=== PATIENT | male | born 1965 | race Hispanic/Latino ===

== ENCOUNTER 2019-11-23 16:58 | Inpatient (IN) | payer BC, OTHER, SELFPAY ==
[2019-11-23] MEDS ORDERED: Dextrose 50% Abboject 50 ML SYRINGE ONE ×2 (17:26→19:16)
[2019-11-23] MEDS ORDERED: Diltiazem 125 MG/25 ML ONE (17:30)
[2019-11-23] MEDS ORDERED: Metoprolol Tartrate 5 MG/5 ML VIAL ONE (17:33)
[2019-11-23 17:53] LABS: #Lymphocytes 1.6 thou/uL (1.20-3.40); #Monocytes 0.7 thou/uL (0.11-0.59); #Neutrophils 7.3 thou/uL (1.40-6.50); %Basophils 0.3 % (0.0-1.0); %Eosinophils 0.2 % (0.0-10.0); %Lymphocytes 16.8 % (21.0-51.0); %Monocytes 7.3 % (0.0-10.0); %Neutrophils 75.4 % (42.0-75.0); Hemoglobin 12.4 g/dL (14.0-18.0); Mean Corpuscular Hemoglobin 32.6 pg (27.0-31.0); Mean Corpuscular Volume 95.8 fL (78.0-98.0); Mean Platelet Volume 10.2 fL (7.4-10.4); Platelet Count 194 thou/uL (130-400); RBC Distribution Width 15.4 % (11.5-14.5); White Blood Cell (WBC) Count 9.7 thou/uL (4.8-10.8)
[2019-11-23 18:22] LABS: ALT (SGPT) 44 U/L (8-55); AST (SGOT) 89 U/L (5-34); Alkaline Phosphatase 327 U/L (40-110); Anion Gap 15 mmol/L (10-20); BUN (Urea Nitrogen) 5 mg/dL (8.4-25.7); Bilirubin, Total 0.6 mg/dL (0.2-1.2); CK (CPK) 60 U/L (30-200); Calc. Creatinine Clearance 0 mL/min (70-130); Carbon Dioxide 18 mmol/L (22-29); Chloride 107 mmol/L (98-107); Estimated GFR-MDRD Greater than 90; Globulin 3.6 g/dL (2.4-3.5); Lipase 9 U/L (8-78); Magnesium 1.2 mg/dL (1.6-2.6); Protein, Total 6.6 g/dL (6.0-8.3); Sodium 138 mmol/L (136-145)
[2019-11-23 18:35] LABS: Glucose 29 mg/dL (70-105); Potassium 2.3 mmol/L (3.5-5.1)
--- NOTE | 2019-11-23 18:37 | RAD ---
XR Chest 1 View Portable HISTORY: Altered mental status COMPARISON: None FINDINGS: The heart size is normal. The lungs are well expanded without focal areas of consolidation, pneumothorax or pleural effusions. IMPRESSION: No radiographic evidence of acute cardiopulmonary process.
[2019-11-23 18:39] LABS: CKMB 2.8 ng/mL (0-6.6)
[2019-11-23] MEDS ORDERED: Potassium Chloride 20 MEQ TAB ONE (18:43)
[2019-11-23] MEDS ORDERED: NS 0.9% w/ 20 MEQ KCL 1,000 ML IV SCH (19:00)
[2019-11-23] MEDS ORDERED: D5 1/2 NS w/20 mEq KCL 1,000 ML IV SCH (19:15)
[2019-11-23] MEDS ORDERED: Lorazepam 2 MG/ML VIAL ONE (19:24)
[2019-11-23] MEDS ORDERED: Ondansetron PF 4 MG/2 ML Vial IVP PRN (20:33)
[2019-11-23] MEDS ORDERED: Electrolyte Replacement Protoc 1 EACH EACH IVPB PRN (20:33)
[2019-11-23] MEDS ORDERED: Lorazepam 2 MG/ML VIAL SLOW IVP PRN (20:39)
[2019-11-23] MEDS ORDERED: Potassium Chloride 40 MEQ in Premix Bag 1 BAG IVPB SCH (20:45)
[2019-11-23] MEDS ORDERED: D5 0.9% NS w/ 20 mEq KCl 1,000 ML IV SCH (20:45)
--- NOTE | 2019-11-23 20:46 | CT ---
CT BRAIN WITHOUT CONTRAST: HISTORY: Altered mental status FINDINGS: No evidence of acute infarct, hemorrhage, midline shift or abnormal extra-axial fluid collections is seen. The ventricular size is appropriate and the basilar cisterns are patent. The bony calvarium is intact. The mastoid air cells are well aerated. There is mucosal disease in the paranasal sinuses. IMPRESSION: No CT evidence of acute intracranial process.
--- NOTE | 2019-11-23 20:47 | PDOC.HHP ---
Hospitalist HPI - History of Present Illness Altered mental status History of Present Illness: 54-year-old gentleman with a history of insulin-dependent diabetes mellitus, hypertension was brought to the emergency department due to altered mental status. According to report patient was found down by family. EMS found him with heart rate in the 180s, and blood glucose of 20. He was given IV glucose and then transferred to the emergency department. Patient mental status had improved by the time he arrived to the ED. Patient had multiple episodes of hypoglycemia which was replaced with D50 and then started on D5 IV infusion. Current glucose level is 233. Patient was found to be in atrial fibrillation. He converted to sinus rhythm after a dose of IV metoprolol in the ED. Patient apparently had a generalized tonic-clonic seizures and was given Ativan. Abnormal labs in the ED included hypokalemia with a potassium of 2.3, and a bicarb of 18. His troponin was slightly elevated to 0.06. He was somnolent from the IV Ativan given for the seizures and could not provide any history. Patient niece endorsed patient drinks alcohol daily. Patient is admitted for further management. Hospitalist ROS - Review of Systems ROS unobtainable: due to mental status Hospitalist History - Past Medical History Cardiac: reports: HTN Endocrine: reports: Diabetes - Family History Family History: reports: diabetes mellitus (Sister) - Social History Smoking Status: Current every day smoker Alcohol: reports: Heavy Drugs: reports: none Living Situation: Roommate - Exam General Appearance: ill appearing General - other findings: Cachectic Eye: PERRL, anicteric sclera ENT: normocephalic atraumatic, no oropharyngeal lesions Neck: supple, symmetric, no JVD, no thyromegaly Heart: RRR, no murmur, no gallops Respiratory: CTAB, no wheezes, no rales, no ronchi Gastrointestinal: soft, non-tender, normal bowel sounds Extremities: no cyanosis, no clubbing, no edema Skin: normal turgor Neurological: no focal deficits Neurological - other findings: Somnolent, moves all extremities spontaneously. Musculoskeletal: normal tone, normal strength Psychiatric: somnolent Hospitalist Results - Labs Result Diagrams: 11/23/19 17:33 11/23/19 17:33 Lab results: WBC 9.7 thou/uL (4.8-10.8) 11/23/19 17:33 Hgb 12.4 g/dL (14.0-18.0) L 11/23/19 17:33 Hct 36.5 % (42.0-52.0) L 11/23/19 17:33 MCV 95.8 fL (78.0-98.0) 11/23/19 17:33 Plt Count 194 thou/uL (130-400) 11/23/19 17:33 Neutrophils % 75.4 % (42.0-75.0) H 11/23/19 17:33 Sodium 138 mmol/L (136-145) 11/23/19 17:33 Potassium 2.3 mmol/L (3.5-5.1) L* 11/23/19 17:33 Chloride 107 mmol/L (98-107) 11/23/19 17:33 Carbon Dioxide 18 mmol/L (22-29) L 11/23/19 17:33 BUN 5 mg/dL (8.4-25.7) L 11/23/19 17:33 Creatinine 0.52 mg/dL (0.7-1.3) L 11/23/19 17:33 Glucose 29 mg/dL (70-105) L* 11/23/19 17:33 Calcium 7.0 mg/dL (7.8-10.44) L 11/23/19 17:33 Total Bilirubin 0.6 mg/dL (0.2-1.2) 11/23/19 17:33 AST 89 U/L (5-34) H 11/23/19 17:33 ALT 44 U/L (8-55) 11/23/19 17:33 Alkaline Phosphatase 327 U/L (40-110) H 11/23/19 17:33 Creatine Kinase 60 U/L (30-200) 11/23/19 17:33 CK-MB (CK-2) 2.8 ng/mL (0-6.6) 11/23/19 17:33 Troponin I 0.060 ng/mL (< 0.028) H 11/23/19 17:33 B-Natriuretic Peptide 146.1 pg/mL (0-100) H 11/23/19 17:33 Serum Total Protein 6.6 g/dL (6.0-8.3) 10/01/20 17:33 Albumin 3.0 g/dL (3.5-5.0) L 11/23/19 17:33 Lipase 9 U/L (8-78) 11/23/19 17:33 - Radiology Interpretation CT scan - head Status: report reviewed by me (No acute intracranial process) Chest x-ray Status: report reviewed by me (No acute cardiopulmonary process.) Hospitalist H&P A/P - Problem (1) Hypoglycemia due to type 2 diabetes mellitus Code(s): E11.649 - TYPE 2 DIABETES MELLITUS WITH HYPOGLYCEMIA WITHOUT COMA Status: Acute Assessment and Plan: Secondary to Lantus insulin use. Hold long-acting insulin. Patient started on D5 infusion. Blood sugar has now stabilized Glucose monitoring every 2 hours. Reading moderate sliding scale. Hypoglycemia protocol (2) Chronic alcoholism Code(s): F10.20 - ALCOHOL DEPENDENCE, UNCOMPLICATED Status: Acute Assessment and Plan: Patient is endorsed daily alcohol intake. Initiate CIWA protocol. Give IV thiamine tonight. Replete electrolytes-potassium and magnesium. (3) Seizures Code(s): R56.9 - UNSPECIFIED CONVULSIONS Status: Acute Assessment and Plan: Likely related to alcohol. Seizures occurred when patient was hyperglycemic and not likely related to the hypoglycemia. Start IV Keppra. Ativan IV is available for breakthrough seizures. Neurology consult. Obtain EEG. (4) Hypokalemia Code(s): E87.6 - HYPOKALEMIA Status: Acute Assessment and Plan: Replete potassium IV Replete magnesium. Check phosphate level. Monitor electrolytes. (5) Atrial fibrillation Code(s): I48.91 - UNSPECIFIED ATRIAL FIBRILLATION Status: Acute Assessment and Plan: New onset. Likely provoked. Could be related to hypokalemia and hypomagnesemia. Optimize electrolytes, potassium level around 4 and magnesium around 2. Cardiology consult Obtain echocardiogram. (6) Elevated troponin Code(s): R77.8 - OTHER SPECIFIED ABNORMALITIES OF PLASMA PROTEINS Status: Acute Assessment and Plan: Likely secondary to demand ischemia from A. fib with RVR. Trend troponin. (7) Hypomagnesemia Code(s): E83.42 - HYPOMAGNESEMIA Status: Acute Assessment and Plan: Replete magnesium. Monitor electrolytes.
[2019-11-23] MEDS ORDERED: Potassium Chloride 40 MEQ in Sodium Chloride 0.9% 250 ML 250 ML IVPB SCH (21:00)
[2019-11-23] MEDS ORDERED: Famotidine/PF 20 mg/2ml Vial SLOW IVP SCH (21:00)
[2019-11-23] MEDS ORDERED: Magnesium 2 GM/50 ML 2 GM in Premix Bag 1 BAG IVPB SCH (21:15)
[2019-11-23 21:25] LABS: Phosphorus 3.3 mg/dL (2.3-4.7)
[2019-11-23 21:29] LABS: Lactic Acid 2.6 mmol/L (0.5-2.2)
[2019-11-23 21:33] LABS: Troponin I 0.105 ng/mL (< 0.028)
[2019-11-23 21:36] LABS: Glucose 66 mg/dL (70-105)
[2019-11-23] MEDS: Dextrose 50% Abboject 50 ML SYRINGE SLOW IVP PRN (22:20)
[2019-11-24 00:24] LABS: Troponin I 0.111 ng/mL (< 0.028)
[2019-11-24 01:29] LABS: Glucose 26 mg/dL (70-105)
[2019-11-24 03:08] LABS: Glucose 112 mg/dL (70-105)
[2019-11-24 03:16] LABS: Anion Gap 10 mmol/L (10-20); BUN (Urea Nitrogen) 4 mg/dL (8.4-25.7); Calc. Creatinine Clearance 111 mL/min (70-130); Calcium 6.8 mg/dL (7.8-10.44); Carbon Dioxide 21 mmol/L (22-29); Chloride 109 mmol/L (98-107); Estimated GFR-MDRD Greater than 90; Glucose 112 mg/dL (70-105); Potassium 3.6 mmol/L (3.5-5.1); Sodium 136 mmol/L (136-145)
[2019-11-24 03:34] LABS: Band 4 % (5-11); Hemoglobin 10.3 g/dL (14.0-18.0); Hypochromia SLIGHT = 6-15 cells (100X) (0-5/hpf); Lymphocytes 12 % (21-51); MDiff Complete? YES; Mean Corpuscular HGB CONC 35.3 g/dL (32.0-36.0); Mean Corpuscular Hemoglobin 33.6 pg (27.0-31.0); Mean Corpuscular Volume 95.4 fL (78.0-98.0); Mean Platelet Volume 9.8 fL (7.4-10.4); Monocytes 4 % (0-10); Neutrophil 80 % (42-75); Platelet Count 154 thou/uL (130-400); Platelet Morphology Comment Appears Adequate; RBC Distribution Width 15.3 % (11.5-14.5); Red Blood Cell (RBC) Count 3.06 mill/uL (4.70-6.10); White Blood Cell (WBC) Count 8.3 thou/uL (4.8-10.8)
[2019-11-24 04:23] LABS: Glucose 75 mg/dL (70-105)
[2019-11-24] MEDS: Dextrose 50% Abboject 50 ML SYRINGE SLOW IVP PRN (04:44)
[2019-11-24] MEDS ORDERED: Dextrose 10% in Water 1,000 ML IV SCH (04:45)
[2019-11-24 07:16] LABS: Glucose 191 mg/dL (70-105)
[2019-11-24 08:19] LABS: Glucose 209 mg/dL (70-105)
[2019-11-24] MEDS ORDERED: FLU VACC QS2020-21(6MOS UP)/PF 60 MCG/0.5 ML SYRINGE IM ONE (09:00)
--- NOTE | 2019-11-24 09:19 | MRI ---
MRI BRAIN WITH AND WITHOUT CONTRAST: DATE: 11/24/2019. HISTORY: A 54-year-old male with new-onset seizures. COMPARISON: none TECHNIQUE: Multiple sequences obtained in axial, sagittal, and coronal planes; pre and post IV injection of gado linium-based contrast agent: 10 mL MultiHance. Thin slice T1 MPR coronals, FLAIR, and gradient echo sequences (seizure protocol) were obtained in addition to the standard sequences. FINDINGS: The FLAIR, coronal, and T2 weighted axial images are severely degraded by motion artifact, such that it is difficult to make a statement about intraaxial signal abnormality. All of the rest of the sequ ences, including the postcontrast T1 weighted images, are of acceptable quality with minimal motion. The ventricles are normal in size and configuration. No abnormal intraaxial enhancement, mass, mass effect, midline shift, extraaxial fluid collection, remote intraaxial hemorrhage, or acute intraaxia l hemorrhage. No asymmetry between the left and right hippocampi. No restricted diffusion. IMPRESSION: 1. Some of the images are severely degraded by patient motion. Perhaps the patient was having a sei zure during those particular sequences. 2. No abnormality of the brain is identified, but it is difficult to make a statement on brain paren chymal signal abnormalities. ISH Kilgore POS: DOMINICK
[2019-11-24] MEDS: Thiamine HCl 200 MG/2 ML VIAL SLOW IVP SCH (10:27)
[2019-11-24] MEDS: Dextrose 5 % And 0.9 % NaCl 1,000 ML IV SCH ×2 (11:04→16:49)
[2019-11-24 11:31] LABS: SARS-CoV-2 MS2 Positive; SARS-CoV-2 N Gene Negative; SARS-CoV-2 S Gene Negative; SARS-CoV-2 by NAA Not Detected (NotDetected); SARS-CoV-2 orf1ab Negative
--- NOTE | 2019-11-24 12:18 | CON ---
NEUROLOGY CONSULTATION DATE OF CONSULTATION: 11/24/2019 REASON FOR CONSULTATION: Altered mental status/new onset seizure. HISTORY OF PRESENT ILLNESS: Mr. Mitchel Cavanaugh is a 54-year-old male with history significant for insulin-dependent diabetes mellitus, hypertension, presented to the emergency room because of altered mental status and seizure-like activity. The patient is extremely somnolent, unable to provide the history. The patient's history is taken from the niece. Per records, he was found down by the family. EMS found him with a heart rate in 180s and the blood glucose was 20. He was given IV glucose and transferred to the emergency department for further evaluation. His mental status improved when he arrived to the emergency room. On arrival, he had multiple episodes of hypoglycemia and was treated with D50 and then started on D5 intravenous infusion. The patient was also found to have new onset atrial fibrillation which was converted to cardiac rhythm after a dose of IV metoprolol in the emergency room. He apparently had a generalized tonic-clonic seizure and was given Ativan. He was also found to have hypokalemia and bicarb was 18. He does have history of alcohol abuse per niece and is admitted for further management. ROS: Constitutional: denies: chills, sweats Respiratory: denies: cough, shortness of breath Cardiovascular: denies: chest pain, palpitations, orthopnea Gastrointestinal: reports: nausea. denies: vomiting, abdominal pain Genitourinary: denies: dysuria PAST MEDICAL HISTORY: Hypertension, diabetes mellitus. PAST SURGICAL HISTORY: Not significant. FAMILY HISTORY: Family history is significant for diabetes mellitus. SOCIAL HISTORY: The patient has history of alcohol abuse and nicotine abuse. ALLERGIES: NKDA - Objective Vital Signs & Weight: Vital Signs (12 hours) Temp Pulse Ox 11/24/19 11:50 97.2 F L 11/24/19 11:06 100 11/24/19 07:24 97.7 F 11/24/19 03:53 98.1 F Weight Admit Weight 97 lb 8 oz Weight 97 lb Most Recent Monitor Data Heart Rate from ECG 73 NIBP 94/67 NIBP BP-Mean 76 Respiration from ECG 10 SpO2 100 I&O: 11/23/19 11/24/19 11/25/19 06:59 06:59 06:59 Intake Total 850 250 Output Total 500 Balance 850 -250 Additional Labs: Accuchecks 11/24/19 11/24/19 11/24/19 11:46 08:11 06:18 POC Glucose 181 H 202 H 216 H 11/24/19 11/24/19 11/23/19 04:19 02:01 19:30 POC Glucose 64 L 171 H 233 H 11/23/19 11/23/19 11/23/19 19:00 18:14 17:29 POC Glucose 31 L* 75 34 L* Active Medications Generic Name Dose Route Start Last Admin Trade Name Freq PRN Reason Stop Dose Admin Dextrose/Water 25 gm 11/23/19 20:42 11/24/19 04:44 Dextrose 50% Abboject 50 Ml Syringe SLOW IVP 25 gm PRN PRN Administration Hypoglycemia Dextrose/Sodium Chloride 1,000 mls @ 125 mls/hr 11/24/19 07:45 11/24/19 11:04 D5 0.9% Ns IV 1,000 mls .Q8H NURIA Administration Thiamine HCl 100 mg 11/24/19 08:00 11/24/19 10:27 Thiamine Hcl 200 Mg/2 Ml Vial SLOW IVP 100 mg Q24HR NURIA Administration PHYSICAL EXAMINATION: General Appearance: ill appearing General - other findings: Cachectic Eye: PERRL, anicteric sclera ENT: normocephalic atraumatic, no oropharyngeal lesions Neck: supple, symmetric, no JVD, no thyromegaly Heart: RRR, no murmur, no gallops Respiratory: CTAB, no wheezes, no rales, no ronchi Gastrointestinal: soft, non-tender, normal bowel sounds Extremities: no cyanosis, no clubbing, no edema Skin: normal turgor Neurological: Mental status, the patient is extremely somnolent, but opens eyes to verbal stimuli. He is alert and oriented to person, place, and time. Speech is clear. Cranial nerves 2 through 12 intact. Motor; muscle, tone and bulk are normal. Moving all 4 extremities equally and symmetrically. Sensory withdraws to nailbed pressure bilaterally. Cerebellar intact. Gait deferred due to patient's safety reason. DATA REVIEWED: Data reviewed, which was significant for anemia. Hemoglobin 12.4, hematocrit 36.5. Hypokalemia, potassium 2.3 and a glucose was 29 on initial presentation. Hypoglycemia. Head CT reviewed, which was negative for acute intracranial pathology. Chest x-ray did not reveal any acute cardiopulmonary process. Lab results: WBC 9.7 thou/uL (4.8-10.8) 11/23/19 17:33 Hgb 12.4 g/dL (14.0-18.0) L 11/23/19 17:33 Hct 36.5 % (42.0-52.0) L 11/23/19 17:33 MCV 95.8 fL (78.0-98.0) 11/23/19 17:33 Plt Count 194 thou/uL (130-400) 11/23/19 17:33 Neutrophils % 75.4 % (42.0-75.0) H 11/23/19 17:33 Sodium 138 mmol/L (136-145) 11/23/19 17:33 Potassium 2.3 mmol/L (3.5-5.1) L* 11/23/19 17:33 Chloride 107 mmol/L (98-107) 11/23/19 17:33 Carbon Dioxide 18 mmol/L (22-29) L 11/23/19 17:33 BUN 5 mg/dL (8.4-25.7) L 11/23/19 17:33 Creatinine 0.52 mg/dL (0.7-1.3) L 11/23/19 17:33 Glucose 29 mg/dL (70-105) L* 11/23/19 17:33 Calcium 7.0 mg/dL (7.8-10.44) L 11/23/19 17:33 Total Bilirubin 0.6 mg/dL (0.2-1.2) 11/23/19 17:33 AST 89 U/L (5-34) H 11/23/19 17:33 ALT 44 U/L (8-55) 11/23/19 17:33 Alkaline Phosphatase 327 U/L (40-110) H 11/23/19 17:33 Creatine Kinase 60 U/L (30-200) 11/23/19 17:33 CK-MB (CK-2) 2.8 ng/mL (0-6.6) 11/23/19 17:33 Troponin I 0.060 ng/mL (< 0.028) H 11/23/19 17:33 B-Natriuretic Peptide 146.1 pg/mL (0-100) H 11/23/19 17:33 Serum Total Protein 6.6 g/dL (6.0-8.3) 11/23/19 17:33 Albumin 3.0 g/dL (3.5-5.0) L 11/23/19 17:33 Lipase 9 U/L (8-78) 11/23/19 17:33 - Radiology Interpretation CT scan - head Status: report reviewed by me (No acute intracranial process) Chest x-ray Status: report reviewed by me (No acute cardiopulmonary process.) ASSESSMENT AND PLAN: (1) Hypoglycemia due to type 2 diabetes mellitus Code(s): E11.649 - TYPE 2 DIABETES MELLITUS WITH HYPOGLYCEMIA WITHOUT COMA Status: Acute (2) Chronic alcoholism Code(s): F10.20 - ALCOHOL DEPENDENCE, UNCOMPLICATED Status: Acute (3) Seizures Code(s): R56.9 - UNSPECIFIED CONVULSIONS Status: Acute (4) Hypokalemia Code(s): E87.6 - HYPOKALEMIA Status: Acute (5) Atrial fibrillation Code(s): I48.91 - UNSPECIFIED ATRIAL FIBRILLATION Status: Acute (6) Elevated troponin Code(s): R77.8 - OTHER SPECIFIED ABNORMALITIES OF PLASMA PROTEINS Status: Acute (7) Hypomagnesemia Code(s): E83.42 - HYPOMAGNESEMIA Status: Acute Mr. Mitchel Cavanaugh is a 54-year-old male with history significant for diabetes mellitus, chronic alcoholism, nicotine abuse, presented with new onset seizure in the setting of episodes of hypoglycemia and hypokalemia, most likely provoked seizure secondary to metabolic etiology versus alcohol abuse. EEG to rule out underlying cortical irritability. MRI of the brain reviewed, which did not reveal any acute intracranial pathology. However, poor quality study due to motion artifact. Consider repeat MRI if possible to evaluate for seizure focus. Continue neuro checks every 4 hours. Observe seizure precaution. Ativan 2 mg IV for seizure greater than 2 minutes. Telemetry since new-onset atrial fibrillation, most likely secondary to hypokalemia and hypomagnesemia. Consider 2D echocardiogram and Cardiology input. Correct metabolic abnormalities per primary team. CIWA protocol. Continue home medications. Continue medical management per primary team. No need to continue Keppra if MRI and EEG are negative. Further recommendation depends on the results of the testing. Plan discussed in detail with the patient and the niece. Thank you for the consult. Job ID: [id number] MTDD
--- NOTE | 2019-11-24 12:31 | PDOC.HOSPP ---
- Subjective Encounter Date: 11/24/19 Encounter Time: 08:00 Subjective: no overnight events. This morning, awake and alert. Complains of diffuse lower extremity pain. otherwise no complaints. - Objective Vital Signs & Weight: Vital Signs (12 hours) Temp Pulse Ox 11/24/19 11:50 97.2 F L 11/24/19 11:06 100 11/24/19 07:24 97.7 F 11/24/19 03:53 98.1 F Weight Admit Weight 97 lb 8 oz Weight 97 lb Most Recent Monitor Data Heart Rate from ECG 73 NIBP 94/67 NIBP BP-Mean 76 Respiration from ECG 10 SpO2 100 I&O: 11/23/19 11/24/19 11/25/19 06:59 06:59 06:59 Intake Total 850 250 Output Total 500 Balance 850 -250 Result Diagrams: 11/24/19 02:34 11/24/19 07:57 Additional Labs: Accuchecks 11/24/19 11/24/19 11/24/19 11:46 08:11 06:18 POC Glucose 181 H 202 H 216 H 11/24/19 11/24/19 11/23/19 04:19 02:01 19:30 POC Glucose 64 L 171 H 233 H 11/23/19 11/23/19 11/23/19 19:00 18:14 17:29 POC Glucose 31 L* 75 34 L* Hospitalist ROS - Review of Systems Constitutional: denies: chills, sweats Respiratory: denies: cough, shortness of breath Cardiovascular: denies: chest pain, palpitations, orthopnea Gastrointestinal: reports: nausea. denies: vomiting, abdominal pain Genitourinary: denies: dysuria - Medication Medications: Active Medications Generic Name Dose Route Start Last Admin Trade Name Freq PRN Reason Stop Dose Admin Dextrose/Water 25 gm 11/23/19 20:42 11/24/19 04:44 Dextrose 50% Abboject 50 Ml Syringe SLOW IVP 25 gm PRN PRN Administration Hypoglycemia Dextrose/Sodium Chloride 1,000 mls @ 125 mls/hr 11/24/19 07:45 11/24/19 11:04 D5 0.9% Ns IV 1,000 mls .Q8H NURIA Administration Thiamine HCl 100 mg 11/24/19 08:00 11/24/19 10:27 Thiamine Hcl 200 Mg/2 Ml Vial SLOW IVP 100 mg Q24HR NURIA Administration - Exam General Appearance: NAD, awake alert General - other findings: emaciated Eye: PERRL, anicteric sclera ENT: normocephalic atraumatic, moist mucosa Neck: no JVD Heart: RRR, no murmur, no gallops, no rubs Respiratory: CTAB, no wheezes, no rales, no ronchi Gastrointestinal: soft, non-tender, non-distended, normal bowel sounds Extremities: no edema Skin - other findings: multiple laceration and superficial ulcerations throughout upper and lower Neurological: no weakness, no focal deficits. negative: facial droop, hemiplegia, speech deficit Psychiatric: oriented to person, oriented to place, oriented to time Hosp A/P - Plan IDDM hypoglycemia alcohol abuse seizures Code(s): E11.649 - TYPE 2 DIABETES MELLITUS WITH HYPOGLYCEMIA WITHOUT COMA Status: Acute Assessment and Plan: hypoglycemia likley due to alcoholism, reduced PO intake without modifying insulin regimen accordingly seizures likley provoked by hypoglycemia; Neurology onboard; MRI pending lower extremity pain likely rhabdo due to seizures/alcoholism Paroxysmal a.fib spontaneously resolved; likely due to alcoholism; possibly hypomagnesemia considering likely precipitating factor is modifiable, continue to monitor Demand ischemia Code(s): R77.8 - OTHER SPECIFIED ABNORMALITIES OF PLASMA PROTEINS Status: Acute Assessment and Plan: stable likely demand due to seizure/afib Plan: stop keppra; ASE protocol continue D5-IVF, thiamine until blood glucose stable CK correct electrolytes Full code ELOS: 2 nights
[2019-11-24 13:00] LABS: ALT (SGPT) 34 U/L (8-55); AST (SGOT) 74 U/L (5-34); Albumin 2.5 g/dL (3.5-5.0); Alkaline Phosphatase 259 U/L (40-110); Anion Gap 13 mmol/L (10-20); BUN (Urea Nitrogen) Less than 4 mg/dL (8.4-25.7); Bilirubin, Total 0.6 mg/dL (0.2-1.2); Calc. Creatinine Clearance 102 mL/min (70-130); Calcium 6.7 mg/dL (7.8-10.44); Carbon Dioxide 18 mmol/L (22-29); Chloride 109 mmol/L (98-107); Estimated GFR-MDRD Greater than 90; Globulin 3.4 g/dL (2.4-3.5); Glucose 125 mg/dL (70-105); Potassium 4.4 mmol/L (3.5-5.1); Protein, Total 5.9 g/dL (6.0-8.3); Sodium 136 mmol/L (136-145)
[2019-11-24] MEDS ORDERED: Magnevist 469MG/ML 20 ML VIAL ONE (13:35)
--- NOTE | 2019-11-24 14:13 | CON ---
DATE OF CONSULTATION: 11/24/2019 REASON FOR CONSULTATION: New-onset atrial fibrillation. PRIMARY TENTS ASSEMBLER: None. Dr. Steven Leone MD consulted. HISTORY OF PRESENT ILLNESS: Mr. Cavanaugh is a 54-year-old male with a past medical history of insulin-dependent diabetes mellitus and hypertension that presented to the hospital after being found down by a friend at home. Per report, EMS found the patient to be hypoglycemic with a blood sugar in the 20s and he was found to be in atrial fibrillation with RVR. When the patient was evaluated in the ED, an EKG demonstrated atrial fibrillation with RVR with pulse in the 150s, and the patient was given 5 mg of metoprolol tartrate IV, which converted him to normal sinus rhythm. He also received D5 to help improve his blood glucose. Right before the patient was going to be admitted to the hospital, he had a generalized tonoclonic seizure, for which he was given Ativan. The patient was in normal sinus rhythm during that time with no arrhythmias appreciated on the territory service representative by the ER staff or ER physician Dr. Fishman. The patient was found to have a potassium of 2.3 and a magnesium of 1.2, which were repleted. He was admitted, and Cardiology was consulted for new-onset atrial fibrillation. Neurology has also been consulted for his generalized tonoclonic seizure-like activity. Today he endorses of leg pain and feeling tired, but otherwise denies other complaints. He does not recall what happened prior to being found down at home, and does not know what he is here. PAST MEDICAL HISTORY: 1. Insulin-dependent diabetes mellitus. 2. Hypertension. SURGICAL HISTORY: Negative. OUTPATIENT MEDICATIONS: 1. Glipizide 5 mg p.o. daily. 2. Insulin, though unknown type or dose. FAMILY HISTORY: No family history of any arrhythmias or cardiac abnormalities. ALLERGIES: NKDA SOCIAL HISTORY: smokes 1ppd; drinks approx "1/2 glass of tequila per day", last drink this past weekend; no drug use REVIEW OF SYSTEMS: A 12-point review of systems was done and was found to be negative other than stated in the history of present illness. PHYSICAL EXAMINATION: VITAL SIGNS: Temperature 97.2, pulse 73, respiratory rate 10, saturating 100% on room air, and blood pressure 94/67. GENERAL: Awake, alert, and oriented x3, though is unsure why he is in the hospital. No signs of distress. The patient is a poorly groomed and a feeble appearing male. HEENT: Normocephalic, atraumatic. NECK: Supple, full range of motion. LUNGS: Clear to auscultation bilaterally, no rhonchi or wheezes. CARDIOVASCULAR: Regular rate and rhythm, normal S1 and S2. No murmurs appreciated. ABDOMEN: Soft, positive bowel sounds. EXTREMITIES: No cyanosis, clubbing, or edema. Extremities appear very thin in nature. SKIN: Various lesions throughout the patient's arms, extremities, and back, though no discharge, bleeding, or erythema appreciated around the wounds. LABORATORY DATA: Laboratory work was reviewed. White count of 8.3, hemoglobin 10.3, hematocrit 29.2, and platelets 154. Chemistry; sodium 136, potassium 3.6, chloride 109, carbon dioxide 21, BUN 4, creatinine 0.47, GFR greater than 90, glucose 112, calcium 6.8. TSH 1.19. Troponins: highest of 0.111. BNP 146.1. COVID with PCR was not detected. IMAGING: Chest x-ray demonstrated no radiographic evidence of acute cardiopulmonary process. Brain CT demonstrated no CT evidence of acute intracranial process. Hospital MRI demonstrated no abnormalities of the brain, though difficult due to images being degraded by patient motion. ASSESSMENT AND PLAN: 1. Paroxysmal atrial fibrillation related to underlying pathology, likely electrolyte derangements. Echo has been ordered, will follow. Recommend starting the patient on a beta-ciara and continue to monitor cardiac rhythm. 2. Indeterminate troponins. Likely due to demand from afib with RVR upon presentation to the ED, troponins have trended down. 3. Hypertension, the patient's blood pressure has been within normal limits without hypertensive medications at this time, and it does not appear that the patient is on medications at home. 4. Insulin-dependent diabetes mellitus. Glucose monitoring and insulin per the primary team. 5. Hypokalemia and hypomagnesemia. Potassium appears to have been repleted as it is normal this morning at 3.6, repeat magnesium pending. Encourage continued repletion as necessary 6. Alcohol abuse. Per patient's niece last drink was last weekend. Patient is on ASE protocol 7. Generalized clonic-tonic seizure. Possibly due to hypoglycemia and electrolyte derangements. EEG pending. Neurology following. Dr. Leone evaluated the patient on the day of the consultation and agrees with the assessment and plan. Thank you for letting us participate in the care of your patient. We will continue to follow. Job ID: [id number] MTDD
--- NOTE | 2019-11-24 14:47 | EEG ---
DATE OF SERVICE: 11/24/2019 ATTENDING PHYSICIAN: Mari Del Valle MD This EEG was performed using 24-channel [employer] video digital EEG machine with 24-disk electrodes. This was an extended 2 hours 7 minutes of inpatient video EEG recording. Digital analysis of the EEG was done for spike and seizure detection, which revealed no abnormalities. BACKGROUND: The posterior background rhythm was not observed. Low amplitude EEG with excessive beta activity intermixed with the background. HYPERVENTILATION: Not performed. PHOTIC STIMULATION: No significant response seen with photic stimulation. SLEEP: Drowsiness and sleep are observed. EEG DIAGNOSES: 1. Intermittent irregular theta activity with superimposed beta. 2. Absence of posterior background rhythm. CLINICAL INTERPRETATION: This EEG is consistent with moderate generalized nonspecific cerebral dysfunction. Job ID: [id number]
--- NOTE | 2019-11-24 19:19 | CON ---
DATE OF CONSULTATION: Please refer to Oxana Castellanos for consultation for details. Briefly, Mr. Cavanaugh was found down. He was found to have a markedly decreased glucose level. He was seen and evaluated in the emergency room, where he had a brief episode of atrial fibrillation. He was given IV beta-ciara therapy and converted to sinus. He also had a seizure while in the emergency room. I have discussed the case with Dr. Stone Fishman. The patient was on the monitor and did not exhibit a dysrhythmia to cause his seizure-like activity. During my visit, Mr. Cavanaugh appears disheveled. He is thin and of low body weight. He is currently in sinus rhythm. From a CV standpoint, we would recommend continued observation. Recommend beta-ciara therapy. His brief episode of atrial fibrillation was likely related to his underlying condition. His overall LVEF does appear normal. At this point, I do not feel Mr. Cavanaugh is a good anticoagulation candidate based on his current social situation. We would have to show further episodes of atrial fibrillation and may consider an outpatient event recorder. Otherwise, from my standpoint, I have no further recommendations. Job ID: [id number]
[2019-11-24] MEDS ORDERED: Sodium Bicarbonate 150 MEQ in Dextrose 5% in Water 1,000 ML IV SCH (20:15)
[2019-11-24] MEDS ORDERED: Insulin Regular 300 UNITS/3 ML VIAL IVP SCH (22:15)
[2019-11-24] MEDS: Insulin Glargine 10 UNITS in Pre-Filled Syringe 1 EACH SC SCH (22:42)
[2019-11-25 03:35] LABS: ALT (SGPT) 27 U/L (8-55); AST (SGOT) 48 U/L (5-34); Albumin 2.2 g/dL (3.5-5.0); Alkaline Phosphatase 232 U/L (40-110); Anion Gap 9 mmol/L (10-20); BUN (Urea Nitrogen) Less than 4 mg/dL (8.4-25.7); Bilirubin, Total 0.6 mg/dL (0.2-1.2); Calc. Creatinine Clearance 96 mL/min (70-130); Calcium 6.7 mg/dL (7.8-10.44); Carbon Dioxide 24 mmol/L (22-29); Chloride 104 mmol/L (98-107); Estimated GFR-MDRD Greater than 90; Globulin 2.7 g/dL (2.4-3.5); Glucose 235 mg/dL (70-105); Magnesium 1.6 mg/dL (1.6-2.6); Potassium 3.5 mmol/L (3.5-5.1); Protein, Total 4.9 g/dL (6.0-8.3); Sodium 133 mmol/L (136-145)
[2019-11-25] MEDS ORDERED: Magnesium 2 GM/50 ML 2 GM in Premix Bag 1 BAG IVPB SCH (06:15)
[2019-11-25] MEDS: Potassium Chloride 20 MEQ in Premix Bag 1 BAG IVPB SCH ×2 (08:16→09:31)
--- NOTE | 2019-11-25 08:43 | PDOC.CPN ---
- Subjective Date: 11/25/19 Time: 08:33 Interval history: Pt doing much better He is more lucid today Maintaining SR - Objective Allergies/Adverse Reactions: Allergies Allergy/AdvReac Type Severity Reaction Status Date / Time No Known Drug Allergies Allergy Verified 11/23/19 23:54 Visit Medications: Current Medications Dextrose/Water (Dextrose 50% Abboject 50 Ml Syringe) 25 gm SLOW IVP PRN PRN PRN Reason: Hypoglycemia Last Admin: 11/24/19 04:44 Dose: 25 gm Documented by: Glucagon (Glucagon 1 Mg/Ml Vial) 1 mg IM PRN PRN PRN Reason: Hypoglycemia Sodium Bicarbonate 150 meq/ (Dextrose/Water) 1,150 mls @ 100 mls/hr IV INF [facility] Last Admin: 11/24/19 22:19 Dose: 1,150 mls Documented by: Insulin Glargine 10 units/ (Miscellaneous Medication) 0.1 mls @ 0 mls/hr SC HS [facility] Last Admin: 11/24/19 22:42 Dose: 0.1 mls Documented by: Magnesium Sulfate 2 gm/ Device 50 mls @ 100 mls/hr IVPB NOW [facility] Stop: 11/25/19 10:00 Last Admin: 11/25/19 07:48 Dose: 50 mls Documented by: Potassium Chloride 20 meq/ (Device) 100 mls @ 50 mls/hr IVPB Q2H [facility] Stop: 11/25/19 11:59 Last Admin: 11/25/19 08:16 Dose: 100 mls Documented by: Insulin Human Regular (Insulin Regular 300 Units/3 Ml Vial) 0 units SC .MOD ERATE SLIDING SC PRN PRN Reason: Moderate Correctional Scale Lorazepam (Lorazepam 2 Mg/Ml Vial) 2 mg SLOW IVP Q4H PRN PRN Reason: Anxiety/Agitation Miscellaneous Medication (Electrolyte Replacement Protoc 1 Each Each) 1 each IVPB PRN PRN PRN Reason: ELECTROLYTES Ondansetron HCl (Ondansetron Pf 4 Mg/2 Ml Vial) 4 mg IVP Q6H PRN PRN Reason: Nausea/Vomiting Sodium Chloride (Flush - Normal Saline 10 Ml Syringe) 10 ml IVF Q12HR [facility] Last Admin: 11/24/19 22:22 Dose: 10 ml Documented by: Sodium Chloride (Flush - Normal Saline 10 Ml Syringe) 10 ml IVF PRN PRN PRN Reason: Saline Flush Thiamine HCl (Thiamine Hcl 200 Mg/2 Ml Vial) 100 mg SLOW IVP Q24HR [facility] Last Admin: 11/24/19 10:27 Dose: 100 mg Documented by: Vital Signs & Weight: Vital Signs Temp 11/25/19 07:16 98.5 F 11/25/19 04:48 98.2 F 11/24/19 23:45 97.4 F L Admit Weight 97 lb 8 oz Weight 95 lb 14.4 oz - Physical Exam General: alert & oriented x3 Neck: supple neck Cardiac: regular rate and rhythm, no murmur, regular rate Lungs: normal exam Neuro: grossly intact Abdomen: no masses - Labs Result Diagrams: 11/24/19 02:34 11/25/19 02:55 Troponin/CKMB CK-MB (CK-2) 2.8 ng/mL (0-6.6) 11/23/19 17:33 Troponin I 0.111 ng/mL (< 0.028) H 11/23/19 23:44 - Assessment/Plan Assessment/Plan: Afib Severe hypoglycemia malnutrition Afib likely secondary to recent event/insult Given its transient nature, would recommend ASA and BB therapy EF normal on echo Seizure not secondary to dysrythmia No further recommendations
[2019-11-25] MEDS: Thiamine HCl 200 MG/2 ML VIAL SLOW IVP SCH (09:30)
--- NOTE | 2019-11-25 12:09 | PDOC.HOSPP ---
- Subjective Encounter Date: 11/25/19 Encounter Time: 09:25 Subjective: awake, responds well to verbal questions no sob or palp is having diarhea which is very watery, no blood or mucus in it - Objective Vital Signs & Weight: Vital Signs (12 hours) Temp Pulse Ox 11/25/19 11:26 98.2 F 11/25/19 08:00 98 11/25/19 07:16 98.5 F 11/25/19 04:48 98.2 F Weight Admit Weight 97 lb 8 oz Weight 95 lb 14.4 oz Most Recent Monitor Data Heart Rate from ECG 79 NIBP 130/78 NIBP BP-Mean 95 Respiration from ECG 11 SpO2 100 I&O: 11/24/19 11/25/19 11/26/19 06:59 06:59 06:59 Intake Total 850 3220 Output Total 1700 Balance 850 1520 Result Diagrams: 11/24/19 02:34 11/25/19 02:55 Additional Labs: Accuchecks 11/25/19 11/25/19 11/24/19 08:15 04:34 23:51 POC Glucose 138 H 138 H 375 H 11/24/19 11/24/19 11/24/19 22:31 20:14 16:11 POC Glucose 396 H 452 H 258 H Hospitalist ROS - Medication Medications: Active Medications Generic Name Dose Route Start Last Admin Trade Name Freq PRN Reason Stop Dose Admin Dextrose/Water 25 gm 11/23/19 20:42 11/24/19 04:44 Dextrose 50% Abboject 50 Ml Syringe SLOW IVP 25 gm PRN PRN Administration Hypoglycemia Sodium Bicarbonate 150 meq/ 1,150 mls @ 100 mls/hr 11/24/19 20:15 11/24/19 22:19 Dextrose/Water IV 1,150 mls INF [facility] Administration Insulin Glargine 10 units/ 0.1 mls @ 0 mls/hr 11/24/19 21:00 11/24/19 22:42 Miscellaneous Medication SC 0.1 mls HS [facility] Administration As Directed Sodium Chloride 10 ml 11/24/19 21:00 11/25/19 09:30 Flush - Normal Saline 10 Ml Syringe IVF 10 ml Q12HR [facility] Administration Thiamine HCl 100 mg 11/24/19 08:00 11/25/19 09:30 Thiamine Hcl 200 Mg/2 Ml Vial SLOW IVP 100 mg Q24HR [facility] Administration - Exam General Appearance: awake alert Eye: PERRL, anicteric sclera ENT: no oropharyngeal lesions, dry oral mucosa Neck: supple, no JVD Heart: RRR, no murmur Respiratory: no wheezes, no rales Gastrointestinal: soft, non-tender, non-distended, normal bowel sounds, no guarding, no rigidity Extremities: no cyanosis, no edema Neurological: cranial nerve grossly intact, no focal deficits Hosp A/P (1) Atrial fibrillation Code(s): I48.91 - UNSPECIFIED ATRIAL FIBRILLATION Status: Resolved Qualifiers: Atrial fibrillation type: paroxysmal Qualified Code(s): I48.0 - Paroxysmal atrial fibrillation (2) Hypoglycemia due to type 2 diabetes mellitus Code(s): E11.649 - TYPE 2 DIABETES MELLITUS WITH HYPOGLYCEMIA WITHOUT COMA Status: Acute (3) Severe protein-calorie malnutrition Code(s): E43 - UNSPECIFIED SEVERE PROTEIN-CALORIE MALNUTRITION Status: Chronic (4) FTT (failure to thrive) in adult Status: Chronic (5) DM type 2 (diabetes mellitus, type 2) Status: Chronic Qualifiers: Diabetes mellitus fci insulin use: without long goods drier use (6) Tobacco abuse Code(s): Z72.0 - TOBACCO USE Status: Chronic (7) Chronic alcoholism Code(s): F10.20 - ALCOHOL DEPENDENCE, UNCOMPLICATED Status: Chronic (8) Seizures Code(s): R56.9 - UNSPECIFIED CONVULSIONS Status: Suspected - Plan has multiple abrasion, lacerations over his body echo showed normal ef in sinus rhythm now tolerating oral diet continue lantus, iv fluids tx to med floor PT eval albumin levels are 2.2, appears cachectic HIV, ac hep panel hemostable now
--- NOTE | 2019-11-25 13:01 | PDOC.NEUPN ---
- Subjective Encounter Date: 11/25/19 Subjective: Patient feels better today. He is alert and oriented x 3. Niece acted as east timorese interpretor. - Objective Vital Signs & Weight: Vital Signs (12 hours) Temp BP Pulse Ox 11/25/19 11:26 98.2 F 11/25/19 11:11 131/85 11/25/19 08:00 98 11/25/19 07:16 98.5 F 11/25/19 04:48 98.2 F Weight Admit Weight 97 lb 8 oz Weight 95 lb 14.4 oz Most Recent Monitor Data Heart Rate from ECG 79 NIBP 130/78 NIBP BP-Mean 95 Respiration from ECG 11 SpO2 100 I&O: 11/24/19 11/25/19 11/26/19 06:59 06:59 06:59 Intake Total 850 3220 Output Total 1700 Balance 850 1520 Result Diagrams: 11/24/19 02:34 11/25/19 02:55 Additional Labs: Accuchecks 11/25/19 11/25/19 11/24/19 08:15 04:34 23:51 POC Glucose 138 H 138 H 375 H 11/24/19 11/24/19 11/24/19 22:31 20:14 16:11 POC Glucose 396 H 452 H 258 H Radiology Reviewed by me: Yes EKG Reviewed by me: Yes ROS - Review of Systems Constitutional: denies: fever, chills, sweats, weakness, malaise, other Eyes: denies: pain, vision change, conjunctivae inflammation, eyelid inflammation, redness, other ENT: denies: ear pain, ear discharge, nose pain, nose discharge, nose congestio n, mouth pain, mouth swelling, throat pain, throat swelling, other Respiratory: denies: cough, dry, shortness of breath, hemoptysis, SOB with excertion, pleuritic pain, sputum, wheezing, other Gastrointestinal: denies: nausea, vomiting, abdominal pain, diarrhea, constipation, melena, hematochezia, other Genitourinary: denies: dysuria, frequency, incontinence, hematuria, retention, other Musculoskeletal: denies: neck pain, shoulder pain, arm pain, back pain, hand pain, leg pain, foot pain, other Neurological: reports: weakness. denies: numbness, incoordination, change in speech, confusion, seizures, other - Medication Medications: Active Medications Generic Name Dose Route Start Last Admin Trade Name Rosalina PRN Reason Stop Dose Admin Dextrose/Water 25 gm 11/23/19 20:42 11/24/19 04:44 Dextrose 50% Abboject 50 Ml Syringe SLOW IVP 25 gm PRN PRN Administration Hypoglycemia Sodium Bicarbonate 150 meq/ 1,150 mls @ 100 mls/hr 11/24/19 20:15 11/24/19 22:19 Dextrose/Water IV 1,150 mls INF [facility] Administration Insulin Glargine 10 units/ 0.1 mls @ 0 mls/hr 11/24/19 21:00 11/24/19 22:42 Miscellaneous Medication SC 0.1 mls HS [facility] Administration As Directed Sodium Chloride 10 ml 11/24/19 21:00 11/25/19 09:30 Flush - Normal Saline 10 Ml Syringe IVF 10 ml Q12HR [facility] Administration Thiamine HCl 100 mg 11/24/19 08:00 11/25/19 09:30 Thiamine Hcl 200 Mg/2 Ml Vial SLOW IVP 100 mg Q24HR [facility] Administration - Exam General Appearance: awake alert Eye: PERRL ENT: normocephalic atraumatic Neck: supple Respiratory: CTAB Cardiovascular: RRR Gastrointestinal: soft Extremities: no cyanosis Skin: normal turgor Neurological: CN's grossly intact, normal sensation to touch, no weakness, no focal deficits Musculoskeletal: normal tone, normal strength, no muscle wasting PSYCH: normal affect, normal behavior, A&O x 3 Results - Labs Result Diagrams: 11/24/19 02:34 11/25/19 02:55 Lab results: WBC 8.3 thou/uL (4.8-10.8) 11/24/19 02:34 Hgb 10.3 g/dL (14.0-18.0) L 11/24/19 02:34 Hct 29.2 % (42.0-52.0) L 11/24/19 02:34 MCV 95.4 fL (78.0-98.0) 11/24/19 02:34 Plt Count 154 thou/uL (130-400) 11/24/19 02:34 Neutrophils % 75.4 % (42.0-75.0) H 11/23/19 17:33 Band Neuts % (Manual) 4 % (5-11) L 11/24/19 02:34 Sodium 133 mmol/L (136-145) L 11/25/19 02:55 Potassium 3.5 mmol/L (3.5-5.1) 11/25/19 02:55 Chloride 104 mmol/L (98-107) 11/25/19 02:55 Carbon Dioxide 24 mmol/L (22-29) 11/25/19 02:55 BUN Less than 4 mg/dL (8.4-25.7) L 11/25/19 02:55 Creatinine 0.54 mg/dL (0.7-1.3) L 11/25/19 02:55 Glucose 235 mg/dL (70-105) H 11/25/19 02:55 Lactic Acid 2.6 mmol/L (0.5-2.2) H 11/23/19 21:03 Calcium 6.7 mg/dL (7.8-10.44) L 11/25/19 02:55 Total Bilirubin 0.6 mg/dL (0.2-1.2) 11/25/19 02:55 AST 48 U/L (5-34) H 11/25/19 02:55 ALT 27 U/L (8-55) 11/25/19 02:55 Alkaline Phosphatase 232 U/L (40-110) H 11/25/19 02:55 Creatine Kinase 134 U/L (30-200) 11/24/19 07:57 CK-MB (CK-2) 2.8 ng/mL (0-6.6) 11/23/19 17:33 Troponin I 0.111 ng/mL (< 0.028) H 11/23/19 23:44 B-Natriuretic Peptide 146.1 pg/mL (0-100) H 11/23/19 17:33 Serum Total Protein 4.9 g/dL (6.0-8.3) L 11/25/19 02:55 Albumin 2.2 g/dL (3.5-5.0) L 11/25/19 02:55 Lipase 9 U/L (8-78) 11/23/19 17:33 - Radiology Interpretation MRI - head Status: image reviewed by me, report reviewed by me Additional Comment: No acute intracranial process PN A/P (1) Seizures Code(s): R56.9 - UNSPECIFIED CONVULSIONS Status: Suspected (2) Hypoglycemia due to type 2 diabetes mellitus Code(s): E11.649 - TYPE 2 DIABETES MELLITUS WITH HYPOGLYCEMIA WITHOUT COMA Status: Acute (3) Hypokalemia Code(s): E87.6 - HYPOKALEMIA Status: Acute (4) Hypomagnesemia Code(s): E83.42 - HYPOMAGNESEMIA Status: Acute (5) Chronic alcoholism Code(s): F10.20 - ALCOHOL DEPENDENCE, UNCOMPLICATED Status: Chronic (6) DM type 2 (diabetes mellitus, type 2) Status: Chronic Qualifiers: Diabetes mellitus terminal makeup operator insulin use: without snf use (7) FTT (failure to thrive) in adult Status: Chronic (8) Severe protein-calorie malnutrition Code(s): E43 - UNSPECIFIED SEVERE PROTEIN-CALORIE MALNUTRITION Status: Chronic (9) Tobacco abuse Code(s): Z72.0 - TOBACCO USE Status: Chronic (10) Atrial fibrillation Code(s): I48.91 - UNSPECIFIED ATRIAL FIBRILLATION Status: Resolved Qualifiers: Atrial fibrillation type: paroxysmal Qualified Code(s): I48.0 - Paroxysmal atrial fibrillation - Plan Daily Plan: PT/OT, speech therapy, DVT proph w/lovenox 54 year old male consulted for altered mental status and seizure like activity. Altered mental status seems multifactorial but most likely secondary to metabolic etiology. MRI Brain reviewed and was negative for acute intracranial process. EEG reviewed and was negative for seizure activity. No need for anticonvulsant since EEG and MRI Brain are negative. Continue home medications. Correct metabolic abnormalities. [facility] Protocol. Counseled on alcohol abuse. Continue medical management per primary team. PT/OT/Speech. Plan discussed with the patient , family member and the nursing staff.
[2019-11-25 13:25] LABS: HBCM Index 0.07 S/CO (0-0.79); HBSAg Index 0.22 S/CO (0-0.99); HIV (1/2) Antibody/Antigen Non-Reactive (NonReactive); HIV 1/2 INDEX 0.13 S/CO (<1.00); Hep A IgM AB Non-Reactive (NonReactive); Hep A IgM S/CO 0.32 S/CO (0-0.79); Hep B Surf Ag Non-Reactive S/CO (NonReactive); Hep C IgG Ab Non-Reactive (NonReactive); Hep C Index 0.07 S/CO (0-0.79); Hepatitis B Core IgM Abs Non-Reactive (NonReactive)
[2019-11-25] MEDS: Insulin Regular 300 UNITS/3 ML VIAL SC PRN (16:47)
[2019-11-25] MEDS: Insulin Glargine 10 UNITS in Pre-Filled Syringe 1 EACH SC SCH (20:47)
[2019-11-26] MEDS: HumaLOG 300 UNITS/3 ML VIAL SC PRN (00:41)
[2019-11-26] MEDS: Insulin Regular 300 UNITS/3 ML VIAL SC PRN ×3 (04:53→16:35)
[2019-11-26] MEDS: Thiamine HCl 200 MG/2 ML VIAL SLOW IVP SCH (08:57)
[2019-11-26] MEDS ORDERED: glipiZIDE 5 MG TAB PO SCH (11:47)
[2019-11-26] MEDS ORDERED: Insulin Glargine 10 UNITS in Pre-Filled Syringe 1 EACH SC SCH (11:47)
--- NOTE | 2019-11-26 11:51 | PDOC.HOSPP ---
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 admits to drinking tequila daily and 6 pack beer on weekends - Objective Vital Signs & Weight: Vital Signs (12 hours) Temp Pulse Resp BP BP Pulse Ox 11/26/19 11:42 98 F 94 20 110/74 100 11/26/19 08:37 98.3 F 89 16 100/67 100 11/26/19 05:07 99 11/26/19 04:39 99.5 F 89 16 100/61 Weight Admit Weight 97 lb 8 oz Weight 95 lb Most Recent Monitor Data Heart Rate from ECG 79 NIBP 130/78 NIBP BP-Mean 95 Respiration from ECG 11 SpO2 100 I&O: 11/25/19 11/26/19 11/27/19 06:59 06:59 06:59 Intake Total 3220 800 Output Total 1700 1000 Balance 1520 -200 Result Diagrams: 11/24/19 02:34 11/25/19 02:55 Additional Labs: Accuchecks 11/26/19 11/26/19 11/25/19 04:36 00:15 20:52 POC Glucose 416 H 459 H 206 H 11/25/19 15:50 POC Glucose 266 H Hospitalist ROS - Medication Medications: Active Medications Generic Name Dose Route Start Last Admin Trade Name Freq PRN Reason Stop Dose Admin Dextrose/Water 25 gm 11/23/19 20:42 11/24/19 04:44 Dextrose 50% Abboject 50 Ml Syringe SLOW IVP 25 gm PRN PRN Administration Hypoglycemia Sodium Bicarbonate 150 meq/ 1,150 mls @ 100 mls/hr 11/24/19 20:15 11/24/19 22:19 Dextrose/Water IV 1,150 mls INF [facility] Administration Insulin Glargine 10 units/ 0.1 mls @ 0 mls/hr 11/24/19 21:00 11/25/19 20:47 Miscellaneous Medication SC 0.1 mls HS [facility] Administration As Directed Insulin Human Lispro 0 units 11/26/19 00:21 11/26/19 00:41 Humalog 300 Units/3 Ml Vial SC 5 unit .BEDTIME SLIDING SC PRN Administration Bedtime Correctional Scale Insulin Human Regular 0 units 11/23/19 20:33 11/26/19 04:53 Insulin Regular 300 Units/3 Ml Vial SC 10 unit .MODERATE SLIDING SC PRN Administration Moderate Correctional Scale Sodium Chloride 10 ml 11/24/19 21:00 11/26/19 08:58 Flush - Normal Saline 10 Ml Syringe IVF 10 ml Q12HR [facility] Administration Thiamine HCl 100 mg 11/24/19 08:00 11/26/19 08:57 Thiamine Hcl 200 Mg/2 Ml Vial SLOW IVP 100 mg Q24HR [facility] Administration - Exam General Appearance: awake alert Eye: PERRL, anicteric sclera ENT: no oropharyngeal lesions, moist mucosa Neck: supple, no JVD Heart: RRR, no murmur Respiratory: no wheezes, no rales Gastrointestinal: soft, non-tender, non-distended, normal bowel sounds Extremities: no cyanosis, no edema Neurological: cranial nerve grossly intact, no focal deficits Hosp A/P (1) Atrial fibrillation Code(s): I48.91 - UNSPECIFIED ATRIAL FIBRILLATION Status: Resolved Qualifiers: Atrial fibrillation type: paroxysmal Qualified Code(s): I48.0 - Paroxysmal atrial fibrillation (2) Hypoglycemia due to type 2 diabetes mellitus Code(s): E11.649 - TYPE 2 DIABETES MELLITUS WITH HYPOGLYCEMIA WITHOUT COMA Status: Resolved (3) Severe protein-calorie malnutrition Code(s): E43 - UNSPECIFIED SEVERE PROTEIN-CALORIE MALNUTRITION Status: Chronic (4) FTT (failure to thrive) in adult Status: Chronic (5) DM type 2 (diabetes mellitus, type 2) Status: Chronic Qualifiers: Diabetes mellitus nursing home insulin use: without nursing home use (6) Tobacco abuse Code(s): Z72.0 - TOBACCO USE Status: Chronic (7) Chronic alcoholism Code(s): F10.20 - ALCOHOL DEPENDENCE, UNCOMPLICATED Status: Chronic (8) Seizures Code(s): R56.9 - UNSPECIFIED CONVULSIONS Status: Suspected - Plan has multiple abrasion, lacerations over his body echo showed normal ef in sinus rhythm now tolerating oral diet continue lantus, add glipizide HIV, ac hep panel are -ve albumin levels are 2.2, appears cachectic CT chest, abd and pelvis to r/o malignancy? hemostable now
[2019-11-26] MEDS ORDERED: Iopamidol-370 76% 500 ML 1 ML ONE (14:01)
--- NOTE | 2019-11-26 17:20 | CT ---
CT OF CHEST, ABDOMEN, AND PELVIS PERFORMED WITH INTRAVENOUS CONTRAST ENHANCEMENT: History: Patient drinks alcohol regularly. Came in from a coma from hypoglycemia. History of diabetes . Recent diarrhea. FINDINGS: The lungs are clear of any infiltrative process. There is some linear atelectasis seen in the right b ase. No pulmonary nodules are identified or pleural effusions. There are small subcentimeter mediastinal lymph nodes, none of which appear significantly enlarged. N o significant hilar adenopathy. There is some mildly prominent nonspecific bilateral axillary lymph n odes. CT OF ABDOMEN PERFORMED WITH INTRAVENOUS CONTRAST ENHANCEMENT: Liver shows no focal lesions. The spleen and pancreas regions are unremarkable. The gallbladder is co ntracted at the time of this exam. Moderate amount of gastric distention is incidentally noted. The p atient appears to have probably recently eaten. Clinical correlation for any symptoms of gastroparesi s. Right and left adrenal glands and right and left kidneys are normal in size. There is no significant periaortic or mesenteric lymphadenopathy. Moderate amount of stool is seen in the right colon. CT OF PELVIS PERFORMED WITH CONTRAST ENHANCEMENT: Bladder wall thickening is probably on the basis of some element of outlet obstruction. The prostate does not appear significantly enlarged. Cystitis would be another consideration. No pelvic lymphadeno kee or mass. The appendix region is unremarkable. Review of osseous structures show no concerning lytic or blastic bony change. Arthritic changes of th e spine are noted with bilateral pars defects and a Grade I spondylolisthesis of L5 on S1. IMPRESSION: 1. No acute findings of the chest, abdomen, or pelvis. Nonspecific mild axillary adenopathy is s een. No evidence of malignancy. 2. Mild bladder wall thickening. POS: OFF
[2019-11-26] MEDS: Insulin Glargine 10 UNITS in Pre-Filled Syringe 1 EACH SC SCH (21:23)
[2019-11-27] MEDS: HumaLOG 300 UNITS/3 ML VIAL SC PRN (00:38)
[2019-11-27 05:30] VITALS: BMI 15.1
[2019-11-27 08:12] VITALS: BP 105/71; TEMP 97.7
[2019-11-27] MEDS ORDERED: glipiZIDE 5 MG TAB PO SCH (09:00)
[2019-11-27] MEDS: Thiamine HCl 200 MG/2 ML VIAL SLOW IVP SCH (09:24)
[2019-11-27] MEDS: Insulin Regular 300 UNITS/3 ML VIAL SC PRN (11:55)
--- NOTE | 2019-11-27 14:56 | DIS ---
DATE OF ADMISSION: 11/23/2019 DATE OF DISCHARGE: 11/27/2019 DISCHARGE DISPOSITION: Home. PRIMARY DISCHARGE DIAGNOSIS: Acute metabolic encephalopathy secondary to hypoglycemia, resolved. SECONDARY DISCHARGE DIAGNOSES: Diabetes mellitus type 2, hypertension, severe protein calorie malnutrition, multiple wounds which are chronically present, failure to thrive, tobacco abuse, suspected chronic alcohol abuse, initial suspicion for seizure has been ruled out. PROCEDURES DONE DURING HOSPITALIZATION: Chest x-ray done showed no acute cardiopulmonary process. CT brain done showed no acute intracranial process. MRI brain on 11/24/2019 with and without contrast done showed no abnormality seen, but this was technically difficult exam due to images being degraded due to patient motion. Echo with 2D Doppler showed EF of 55% to 60%. CT chest, abdomen, and pelvis with and without contrast done showed no acute findings, nonspecific mild axillary adenopathy, mild urinary bladder wall thickening. EEG done on 11/24/2019 showed findings consistent with moderate generalized nonspecific cerebral dysfunction. Stool for Campylobacter antigen, Shiga toxin 1 and 2 were negative. H and H 10 and 29, platelet count 154. MCV 95, albumin 2.2. On arrival, serum glucose was 29, potassium was 2.3, serum bicarb 18, magnesium 1.2, calcium 7.0. COVID-19 PCR was not detected on 11/23/2019. HIV 1 and 2 antigen nonreactive. Acute hepatitis panel negative. DISCHARGE MEDICATIONS: Glipizide 5 mg p.o. daily. ALLERGIES: NO KNOWN DRUG ALLERGIES. BRIEF COURSE DURING HOSPITALIZATION: The patient initially got admitted to [facility] for altered mental state due to persistent hypoglycemia. The patient has known history of type 2 diabetes. There is also initial suspicion for tonic colonic seizure, likely due to hypoglycemia, which got resolved in the ER. He had acute metabolic encephalopathy secondary to above. He was also very poor historian, likely due to underlying chronic alcohol abuse issues. He also had multiple wounds all over his body including abrasions and lacerations likely from falling versus chronic skin disease which is undiagnosed. His hypoglycemia completely got resolved. The patient's metabolic encephalopathy resolved. His diabetes mellitus type 2 is stable at the time of discharge. He is ambulating and tolerating oral solid diet. In view of the patient's BMI of around 15 and weighing around 94 pounds with him being 5 foot 6 [address] He has had CT chest, abdomen, and pelvis with and without contrast and MRI brain with and without contrast done, none of the above imaging study showed any acute abnormality to explain his cachexia. His echo revealed normal ejection fraction as well. The patient was counseled with regard to complete cessation of tobacco and alcohol. He was counseled with regard to healthy eating. He is hemodynamically stable and will be shortly discharged home. Please note, I have seen and examined the patient on the day of discharge. Job ID: [id number]
== END 2019-11-27 12:01 | disposition home or self-care (01) | DRG 637 ==
LOC: ERS 16:58 → IMCU/EMU 19:47 → T4-B 11-25 12:06
PROVIDERS: ADMIT Internal Medicine; ATTEND Internal Medicine
DX: E11.649 Type 2 diabetes mellitus with hypoglycemia without coma (principal); E43 Unspecified severe protein-calorie malnutrition; G93.41 Metabolic encephalopathy; R64 Cachexia; Z68.1 Body mass index [BMI] 19.9 or less, adult; I24.8 Other forms of acute ischemic heart disease; I48.0 Paroxysmal atrial fibrillation; E87.6 Hypokalemia; L89.152 Pressure ulcer of sacral region, stage 2; I10 Essential (primary) hypertension; R62.7 Adult failure to thrive; F17.200 Nicotine dependence, unspecified, uncomplicated; F10.20 Alcohol dependence, uncomplicated; R77.8 Other specified abnormalities of plasma proteins; E83.42 Hypomagnesemia; Z79.899 Other long term (current) drug therapy; Z20.828 Contact with and (suspected) exposure to other viral communicable diseases
CPT/HCPCS: 36415; 36416; 36600; 70450; 70553; 71045; 71260; 74177; 80053; 80074; 82550; 82553; 82947; 83605; 83690; 83735; 83880; 84100; 84443; 84484; 85007; 85025; 85027; 87045; 87046; 87389; 87427; 87449; 87635; 90471; 90662; 90732; 93005; 93306; 95712; 95816; 95819; 96365; 96375; A9579; G0008; G0009; J1815; J1953; J2060; J3411; J3475; J3480; J7050; J7070; Q9967; S0028; U0003

== ENCOUNTER 2020-01-30 04:53 | Inpatient (IN) | payer SELFPAY ==
[2020-01-30] MEDS ORDERED: Succinylcholine 200 MG/10 ml SYRINGE FS ONE (05:23)
[2020-01-30] MEDS ORDERED: Norepinephrine 8 MG/0.9% NS 250 ML ONE (05:27)
[2020-01-30 06:00] LABS: #Monocytes 0.6 thou/uL (0.11-0.59); #Neutrophils 9.2 thou/uL (1.40-6.50); %Basophils 0.3 % (0.0-1.0); %Eosinophils 0.1 % (0.0-10.0); %Lymphocytes 16.9 % (21.0-51.0); %Monocytes 5.2 % (0.0-10.0); %Neutrophils 77.5 % (42.0-75.0); Hemoglobin 13.4 g/dL (14.0-18.0); Mean Corpuscular HGB CONC 33.4 g/dL (32.0-36.0); Mean Corpuscular Hemoglobin 32.5 pg (27.0-31.0); Mean Corpuscular Volume 97.2 fL (78.0-98.0); Mean Platelet Volume 8.8 fL (7.4-10.4); Platelet Count 260 thou/uL (130-400); Red Blood Cell (RBC) Count 4.11 mill/uL (4.70-6.10); White Blood Cell (WBC) Count 11.8 thou/uL (4.8-10.8)
[2020-01-30] MEDS ORDERED: Cefepime 2 GM VIAL ONE (06:09)
[2020-01-30] MEDS ORDERED: Vancomycin 1 GM/200 ML BAG ONE (06:09)
[2020-01-30 06:11] LABS: ALT (SGPT) 23 U/L (8-55); AST (SGOT) 25 U/L (5-34); Alkaline Phosphatase 194 U/L (40-110); Anion Gap 16 mmol/L (10-20); BUN (Urea Nitrogen) 6 mg/dL (8.4-25.7); Bilirubin, Total 0.3 mg/dL (0.2-1.2); Calc. Creatinine Clearance 0 mL/min (70-130); Calcium 7.9 mg/dL (7.8-10.44); Carbon Dioxide 22 mmol/L (22-29); Chloride 102 mmol/L (98-107); Globulin 4.1 g/dL (2.4-3.5); Glucose 153 mg/dL (70-105); Potassium 3.6 mmol/L (3.5-5.1); Protein, Total 7.1 g/dL (6.0-8.3); Sodium 136 mmol/L (136-145)
[2020-01-30 06:13] LABS: Acetaminophen Less than 6.0 mcg/mL (10.0-30.0); Alcohol Less than 10 mg/dL (Less than 10); Salicylate Less than 8.0 mg/dL (15.0-30.0)
[2020-01-30] MEDS ORDERED: fentaNYL Citrate/PF 2,000 MCG in Sodium Chloride 0.9% 60 ML IV SCH (06:15)
[2020-01-30 06:50] LABS: Analyzer IN Cardio ER; Base Excess (BEa) -5.6 mEq/L (-2.0 to +3.0); CO2 Tension 51.9 mmHg (35.0-45.0); Calcium, Ionized (arterial) 1.09 mmol/L (1.12-1.30); Carboxyhemoglobin (COHb) 0.2 gm% (0.0-3.0); Hemoglobin (Hb) 13.8 g/dL (14.0-18.0); Potassium - ABG Lab 3.17 mmol/L (3.70-5.30)
[2020-01-30 06:58] LABS: O2 Tension (PaO2), arterial 57.4 mmHg (80.0-100.0); Puncture Site LRA; pH, Arterial 7.25 (7.35-7.45)
[2020-01-30 06:59] LABS: ALV-art Gradient 448.125 mmHg (0-20)
[2020-01-30 07:05] LABS: SARS-CoV-2 NAA Rapid Test Not Detected (NotDetected)
--- NOTE | 2020-01-30 07:30 | CT ---
PRELIMINARY REPORT/[facility]/EMERGENCY AFTER HOURS PROCEDURE: This report was discussed with ABRAM HORNER MD by Breanna hairston on Jan 30, 2020 05:21:00 SHOVEL OPERATOR. Addendum electronically signed by Breanna hairston on January 30, 2020 5:21:41 AM SHOVEL OPERATOR EXAM: CT Head Without Intravenous Contrast. CLINICAL HISTORY: AMS TECHNIQUE: Axial computed tomography images of the head/brain without intravenous contrast. COMPARISON: 11/23/2019. FINDINGS: BRAIN: No acute intraparenchymal hemorrhage. No mass lesion. No CT evidence for acute territorial inf arct. No midline shift or extra-axial collection. VENTRICLES: No hydrocephalus. ORBITS: The orbits are unremarkable. SINUSES AND MASTOIDS: The paranasal sinuses and mastoid air cells are clear. SOFT TISSUES: No significant facial or scalp soft tissue swelling evident. No radiopaque foreign body is seen. BONES: No acute skull fracture. IMPRESSION: No acute intracranial abnormality. ELECTRONICALLY SIGNED BY: Anamika Oliveira DO Jan 30, 2020 5:18:30 AM SHOVEL OPERATOR FINAL REPORT HEAD CT WITHOUT CONTRAST: HISTORY: Altered mental status. Level II stroke. COMPARISON: 11/23/2019. FINDINGS: Hemorrhage: No intraparenchymal hemorrhage or extra-axial hematoma. Brain parenchyma: Cortical hernadez-white matter differentiation is preserved. No mass effect or midline shift. Basilar cisterns are patent. Ventricular system: Ventricles and sulci are patent and symmetric. Calvarium: Intact. Sinuses and mastoid air cells: Adequate aeration. IMPRESSION: 1. This report is in agreement with initial report by [facility] 2. No acute intracranial process. Transcribed Date/Time: 01/30/2020 8:18 AM
[2020-01-30] MEDS ORDERED: Ondansetron PF 4 MG/2 ML Vial IVP PRN (07:31)
[2020-01-30] MEDS ORDERED: Electrolyte Replacement Protocol 1 EACH IVPB SCH (07:31)
[2020-01-30] MEDS ORDERED: Acetaminophen 325 MG Suppository PR PRN (07:31)
--- NOTE | 2020-01-30 07:39 | RAD ---
Portable frontal chest radiograph: 01/30/2020 COMPARISON: 01/30/2020 HISTORY: Evaluate lines and tubes, hypoglycemia FINDINGS: There is a new endotracheal tube in proper position. There are focal areas of airspace dise ase in the lung bases, right greater than left, grossly unchanged. There is a nasogastric tube which is malpositioned, curling over the mid chest, distal tip directed cephalad. Supine imaging limi ts assessment for pneumothorax and pleural fluid. IMPRESSION: Bibasilar airspace disease/consolidation suggesting infectious pneumonitis or aspiration. New endotracheal tube in proper position Malpositioned nasogastric tube. Recommend removal of the nasogastric tube.
--- NOTE | 2020-01-30 07:46 | PDOC.HHP ---
Hospitalist HPI - History of Present Illness Altered mental status History of Present Illness: This is an unfortunate 54 years old male with significant past medical history of diabetes type 2, hypertension, severe protein calorie malnutrition, with multiple wound in several different area with different stage, who was found down at home. He was brought to the ED for further evaluation. Upon a rrival, he was found to have BG of 49 and in respiratory distress. Further work-up showed that he had bilateral pneumonia, with lactic acid of 4.6. Patient was subsequently intubated. He is unable to provide any meaningful history. No family member at bedside. Information obtained from chart review, and discussed with ED staff. Hospitalist was asked to admit the patient for further management. In the ED, patient was volume resuscitated adequately based on sepsis protocol, and was started on broad-spectrum IV antibiotic. Blood cultures have been negative obtained. Hospitalist ROS - Review of Systems ROS unobtainable: due to endotracheal tube Hospitalist History - Past Medical History Cardiac: reports: HTN Endocrine: reports: Diabetes - Past Surgical History Past Surgical History: reports: no pertinent history - Family History Family History: reports: Other (unable to obtain d/t pt's status) - Social History Tobacco Type: cigarettes Alcohol: reports: Heavy Drugs: reports: none - Exam General - other findings: Patient sedated and intubated Eye: PERRL ENT: normocephalic atraumatic Neck: supple Heart: RRR Respiratory: rhonchi Gastrointestinal: soft Extremities: no cyanosis Skin: normal turgor Neurological: no focal deficits Neurological - other findings: Patient sedated and intubated Hospitalist Results - Labs Result Diagrams: 01/30/20 05:43 01/30/20 05:43 Lab results: WBC 11.8 thou/uL (4.8-10.8) H 01/30/20 05:43 Hgb 13.4 g/dL (14.0-18.0) L 01/30/20 05:43 Hct 40.0 % (42.0-52.0) L 01/30/20 05:43 MCV 97.2 fL (78.0-98.0) 01/30/20 05:43 Plt Count 260 thou/uL (130-400) 01/30/20 05:43 Neutrophils % 77.5 % (42.0-75.0) H 01/30/20 05:43 ABG pH 7.25 (7.35-7.45) L* 01/30/20 06:12 ABG pCO2 51.9 mmHg (35.0-45.0) H 01/30/20 06:12 ABG pO2 57.4 mmHg (80.0-100.0) L* 01/30/20 06:12 Sodium 136 mmol/L (136-145) 01/30/20 05:43 Potassium 3.6 mmol/L (3.5-5.1) 01/30/20 05:43 Chloride 102 mmol/L (98-107) 01/30/20 05:43 Carbon Dioxide 22 mmol/L (22-29) 01/30/20 05:43 BUN 6 mg/dL (8.4-25.7) L 01/30/20 05:43 Creatinine 0.53 mg/dL (0.7-1.3) L 01/30/20 05:43 Glucose 153 mg/dL (70-105) H 01/30/20 05:43 Lactic Acid 4.6 mmol/L (0.5-2.2) H* 01/30/20 05:43 Calcium 7.9 mg/dL (7.8-10.44) 01/30/20 05:43 Total Bilirubin 0.3 mg/dL (0.2-1.2) 01/30/20 05:43 AST 25 U/L (5-34) 01/30/20 05:43 ALT 23 U/L (8-55) 01/30/20 05:43 Alkaline Phosphatase 194 U/L (40-110) H 01/30/20 05:43 Troponin I Less than 0.010 ng/mL (< 0.028) 01/30/20 05:43 Serum Total Protein 7.1 g/dL (6.0-8.3) 01/30/20 05:43 Albumin 3.0 g/dL (3.5-5.0) L 01/30/20 05:43 - Radiology Interpretation Chest x-ray Status: image reviewed by sc Hospitalist H&P A/P - Plan Plan: This is an unfortunate 54 years old gentleman who has significant past medical history of diabetes type 2, hypertension, tobacco dependent disorder, he was found down at home. Upon arrival, he was found in respiratory distress, with blood glucose of 49. Patient was subsequently intubated in the ED. Hospitalist was asked to admit the patient for further management. Acute hypoxic respiratory failure secondary to pneumonia --Patient has been intubated, being admitted to ICU. Will continue with broad- spectrum IV antibiotics, fluid hydration. Follow cultures --Consult bank appraiser for further management, I have discussed the case with Dr. Iniguez. Sepsis with septic shock --Patient was volume resuscitated adequately based on sepsis protocol. he has been started on vasopressure support. We will continue with Levophed to keep map above 65 --Broad-spectrum IV antibiotic with Levaquin, cefepime and vancomycin. Follow cultures, trend lactate level PNA -likely due to community-acquired pneumonia, Covid negative --Management as above Diabetes type 2 with hyperglycemia --His blood glucose was 49 on arrival, he is on sulfonylurea at home. We will hold his home medication. Initiate sliding scale for now Hypertension --He is hypotensive in setting of septic shock, hold all his antihypertensive medications Moderate protein calorie malnutrition, POA --Nutrition consult Multiple ulcer at various stages, POA --Wound care consult DVT ppx: Lovenox GI ppx: Pepcid Code Status: Presumed full code until cleared clarified with family Anticipated Dispo: To be determined
[2020-01-30 07:56] LABS: Amphetamine Not Detected (NotDetected); Barbiturates Screen Not Detected (NotDetected); Benzodiazepine Screen Not Detected (NotDetected); Cocaine Metabolite Screen Not Detected (NotDetected); Medtox Control Line Valid? VALID (VALID); Medtox Reader # READER 1; Methadone Not Detected (NotDetected); Methamphetamine Not Detected (NotDetected); Opiate Screen Not Detected (NotDetected); Oxycodone Screen Not Detected (NotDetected); Phencyclidine (PCP) Not Detected (NotDetected); THC/Cannabinoid Screen Not Detected (NotDetected); Tricyclic Screen Not Detected (NotDetected)
--- NOTE | 2020-01-30 07:56 | RAD ---
RADIOGRAPH CHEST 1 VIEW: DATE: 01/30/2020 TIME: 5:22 AM HISTORY: 54-year-old male with hypoglycemia and altered mental status. Concern for aspiration. COMPARISON: 11/23/2019 FINDINGS: New finding of scattered bilateral faint groundglass infiltrates, plus small to moderate size region of consolidation at right base. No cardiomegaly. Supine positioning makes this insensitive for pneumothorax detection. Lateral costophrenic angles are sharp. IMPRESSION: Scattered bilateral infiltrates: Nonspecific but possibly representing COVID-19 pneumonia
[2020-01-30] MEDS ORDERED: Dextrose 50% Abboject 50 ML SYRINGE ONE ×2 (08:00→12:06)
[2020-01-30] MEDS ORDERED: Dextrose 5 % And 0.9 % NaCl 1,000 ML IV SCH (08:15)
[2020-01-30 08:46] LABS: Lactic Acid 1.6 mmol/L (0.5-2.2)
[2020-01-30 08:49] LABS: Actual Bicarbonate (HCO3a) 18.4 mEq/L (22-28); Analyzer IN Cardio ER; Base Excess (BEa) -9.1 mEq/L (-2.0 to +3.0); CO2 Tension 45.8 mmHg (35.0-45.0); Calcium, Ionized (arterial) 1.11 mmol/L (1.12-1.30); Carboxyhemoglobin (COHb) 0.3 gm% (0.0-3.0); Hemoglobin (Hb) 13.5 g/dL (14.0-18.0); O2 Tension (PaO2), arterial 90.5 mmHg (80.0-100.0); Potassium - ABG Lab 3.33 mmol/L (3.70-5.30)
[2020-01-30 08:50] LABS: Troponin I 0.013 ng/mL (< 0.028)
[2020-01-30] MEDS ORDERED: Cefepime 2 GM in Sodium Chloride 0.9% 100 ML IVPB SCH (09:00)
[2020-01-30] MEDS: Sodium Chloride 0.9% 1,000 ML IV SCH (11:00)
[2020-01-30] MEDS: Famotidine/PF 20 mg/2ml Vial SLOW IVP SCH ×2 (11:00→20:13)
[2020-01-30 12:11] LABS: Puncture Site LRA; pH, Arterial 7.22 (7.35-7.45)
[2020-01-30] MEDS ORDERED: Digoxin 0.5 MG/2 ML AMP SLOW IVP SCH (12:45)
[2020-01-30] MEDS: Dextrose 10% in Water 1,000 ML IV SCH ×2 (12:46→20:13)
[2020-01-30 12:50] LABS: Troponin I 0.021 ng/mL (< 0.028)
[2020-01-30 12:58] LABS: Glucose 20 mg/dL (70-105)
[2020-01-30] MEDS ORDERED: Sodium Chloride 0.9% 1,000 ML IV SCH (13:00)
[2020-01-30 13:40] LABS: Actual Bicarbonate (HCO3a) 16.1 mEq/L (22-28); Base Excess (BEa) -9.6 mEq/L (-2.0 to +3.0); CO2 Tension 34.7 mmHg (35.0-45.0); Calcium, Ionized (arterial) 1.06 mmol/L (1.12-1.30); Carboxyhemoglobin (COHb) 0.4 gm% (0.0-3.0); Hemoglobin (Hb) 13.1 g/dL (14.0-18.0); Potassium - ABG Lab 3.02 mmol/L (3.70-5.30); pH, Arterial 7.29 (7.35-7.45)
[2020-01-30 13:50] LABS: Puncture Site LRA
[2020-01-30 13:51] LABS: ALV-art Gradient 328.425 mmHg (0-20)
[2020-01-30] MEDS: Albumin 25% 25 GM/100 ML BOT IVPB SCH ×2 (14:11→19:47)
[2020-01-30] MEDS: Norepinephrine 8 MG/0.9% NS 250 ML IVPB PRN ×3 (14:33→23:11)
[2020-01-30] MEDS ORDERED: Morphine 2 MG/ML VIAL SLOW IVP PRN (15:30)
[2020-01-30] MEDS ORDERED: Propofol BOLUS 1,000 MG/100 ML VIAL IV PRN (15:30)
[2020-01-30] MEDS ORDERED: Fentanyl BOLUS 250 ML IVPB PRN (15:30)
[2020-01-30] MEDS ORDERED: DISCONTINUE PREVIOUS NARCOTIC PAIN MEDICATIONS AND BENZODIAZEPINES FS SCH (15:30)
[2020-01-30] MEDS: Lorazepam 2 MG/ML VIAL SLOW IVP PRN ×2 (15:34→19:47)
[2020-01-30] MEDS: fentaNYL Citrate/PF 2,000 MCG in Sodium Chloride 0.9% 60 ML IV SCH (16:59)
[2020-01-30] MEDS: Vancomycin 1 GM in Premix Bag 1 BAG IVPB SCH (18:40)
--- NOTE | 2020-01-30 18:48 | CON ---
DATE OF CONSULTATION: 01/30/2020 HISTORY OF PRESENT ILLNESS: History is obtained from the records. Apparently, Mr. Cavanaugh was in the hospital here in September. According to the medical records, he had multiple cutaneous ulcerations and appeared extremely cachectic then. He was noted to be diabetic with hypertension, presented with hypoglycemia. He also was found to have atrial fibrillation when he came in. The family reported that he was a daily alcohol user. He remained in the hospital from the to the . He was discharged to home with only glipizide. He has been readmitted with altered mental status and has been intubated. He is on pressors, and I was consulted. PAST MEDICAL HISTORY: Otherwise, unremarkable. FAMILY HISTORY: Otherwise, unremarkable. SOCIAL HISTORY: He apparently is a heavy drinker and smokes cigarettes. REVIEW OF SYSTEMS: Not obtainable. PHYSICAL EXAMINATION: GENERAL: He is extremely cachectic appearing. VITAL SIGNS: Blood pressure 107/72. Heart rate is 144, I suppose this could be atrial flutter. Respiratory rates in the 20s. HEENT: He has temporal muscle wasting. Sclerae are anicteric. He does open his eyes and make eye contact. NECK: Without lymphadenopathy. LUNGS: Remarkable for coarse equal breath sounds. HEART: Regular rhythm, rapid rate. ABDOMEN: Soft and nontender. DIAGNOSTIC STUDIES: Chest radiograph shows diffuse alveolar infiltrates, worse on the right. IMPRESSION: Pneumonia with acute respiratory distress syndrome. His COVID screen was negative. His COVID screen 2 months ago was negative. I suspect he is clinically septic from a pneumonia. He may have a coexistent atrial flutter, although this may just be sinus tachycardia. His prognosis is extremely poor, given his cachexia. Salt poor albumin will be added. Hopefully, we will gradually wean from pressors. It is unclear whether or not he is taking his oral agent, but he may have, if he still drinking a lot, significant delayed clearance of glipizide, it might be better on no medication as opposed to an oral agent that leads to recurrent hypoglycemia. We will follow with the other physicians caring for. Critical care time, 30 minutes. Job ID: [id number] MTDD
[2020-01-30] MEDS: Cefepime 2 GM in Sodium Chloride 0.9% 100 ML IVPB SCH (20:12)
[2020-01-30] MEDS: Enoxaparin Sodium 30 MG/0.3 ML SYRINGE SC SCH (20:13)
[2020-01-31 00:17] LABS: Bacteria/HPF None Seen HPF (None Seen); Bilirubin Negative (Negative); Blood, Urine 1+ (Negative); Clarity Clear (Clear); Glucose, Urine (Dipstick) Normal (Negative); Ketone, Urine Negative (Negative); Leukocyte Negative Leu/uL (Negative); Nitrite Negative (Negative); Protein, Urine (Dipstick) Negative (Neg-Trace); RBC/HPF 0-3 HPF (0-3); Specific Gravity, Urine 1.003 (1.002-1.036); Squamous Epithelial None Seen HPF (0-3); Urobilinogen Normal mg/dL (Less than 2); WBC/HPF 0-3 HPF (0-3)
[2020-01-31 00:18] LABS: Anion Gap 15 mmol/L (10-20); BUN (Urea Nitrogen) 9 mg/dL (8.4-25.7); Calc. Creatinine Clearance 78 mL/min (70-130); Calcium 7.1 mg/dL (7.8-10.44); Carbon Dioxide 17 mmol/L (22-29); Chloride 113 mmol/L (98-107); Glucose 140 mg/dL (70-105); Magnesium 1.1 mg/dL (1.6-2.6); Phosphorus 3.1 mg/dL (2.3-4.7); Sodium 142 mmol/L (136-145)
[2020-01-31 00:22] LABS: Potassium 2.8 mmol/L (3.5-5.1)
[2020-01-31 00:25] LABS: Urine Culture Reflex No No
[2020-01-31] MEDS: Albumin 25% 25 GM/100 ML BOT IVPB SCH ×3 (01:06→14:11)
[2020-01-31] MEDS: Lorazepam 2 MG/ML VIAL SLOW IVP PRN ×5 (01:07→20:09)
[2020-01-31] MEDS: Magnesium 2 GM/50 ML 2 GM in Premix Bag 1 BAG IVPB SCH ×2 (01:07→02:43)
[2020-01-31] MEDS: Potassium Chloride 40 MEQ in Premix Bag 1 BAG IVPB SCH ×2 (01:08→02:44)
[2020-01-31 05:58] LABS: Hemoglobin A1c 8.4 % (4.0-6.0)
[2020-01-31 06:10] LABS: Phosphorus 2.7 mg/dL (2.3-4.7)
[2020-01-31 06:11] LABS: ALT (SGPT) 15 U/L (8-55); AST (SGOT) 29 U/L (5-34); Albumin 3.3 g/dL (3.5-5.0); Alkaline Phosphatase 115 U/L (40-110); Anion Gap 15 mmol/L (10-20); BUN (Urea Nitrogen) 9 mg/dL (8.4-25.7); Bilirubin, Total 0.5 mg/dL (0.2-1.2); Calc. Creatinine Clearance 77 mL/min (70-130); Calcium 7.7 mg/dL (7.8-10.44); Carbon Dioxide 16 mmol/L (22-29); Chloride 117 mmol/L (98-107); Globulin 2.6 g/dL (2.4-3.5); Glucose 298 mg/dL (70-105); Magnesium 3.1 mg/dL (1.6-2.6); Potassium 4.2 mmol/L (3.5-5.1); Protein, Total 5.9 g/dL (6.0-8.3); Sodium 144 mmol/L (136-145)
[2020-01-31] MEDS: Vancomycin 1 GM in Premix Bag 1 BAG IVPB SCH ×2 (06:39→19:45)
[2020-01-31] MEDS: fentaNYL Citrate/PF 2,000 MCG in Sodium Chloride 0.9% 60 ML IV SCH (06:39)
[2020-01-31] MEDS: Potassium Chloride 40 MEQ in Dextrose 5% in Water 1,000 ML IVPB SCH ×2 (06:39→17:25)
[2020-01-31 07:50] LABS: Base Excess (BEa) -8.3 mEq/L (-2.0 to +3.0); CO2 Tension 29.1 mmHg (35.0-45.0); Calcium, Ionized (arterial) 1.17 mmol/L (1.12-1.30); Carboxyhemoglobin (COHb) 0.3 gm% (0.0-3.0); Hemoglobin (Hb) 11.1 g/dL (14.0-18.0); O2 Tension (PaO2), arterial 93.8 mmHg (80.0-100.0); Potassium - ABG Lab 3.86 mmol/L (3.70-5.30); Puncture Site RRA; pH, Arterial 7.36 (7.35-7.45)
[2020-01-31 07:51] LABS: ALV-art Gradient 226.325 mmHg (0-20)
--- NOTE | 2020-01-31 08:15 | RAD ---
SINGLE VIEW OF THE CHEST: COMPARISON: 01/30/2020. HISTORY: Pneumonia. Intubated with respiratory failure. FINDINGS: A single view of the chest shows a normal-size cardiomediastinal silhouette. The endotracheal tube i s unchanged in position. The NG tube has been replaced and courses off the inferior aspect of the fi lm, likely within the stomach. Diffuse increased interstitial lung markings are present. Bilateral lower lobe airspace opacities are seen, right greater than left. No pleural effusion or pneumothorax are seen. There appears to be a remote left proximal humerus fracture. IMPRESSION: 1. Appropriate position of nasogastric tube. 2. Bibasilar infiltrates. 3. Possible remote left humeral neck fracture. POS: SHEILAA
[2020-01-31] MEDS: Famotidine/PF 20 mg/2ml Vial SLOW IVP SCH ×2 (08:34→20:08)
[2020-01-31] MEDS: Norepinephrine 8 MG in Dextrose 5% in Water 242 ML IVPB PRN ×2 (08:38→17:25)
[2020-01-31] MEDS: Cefepime 2 GM in Sodium Chloride 0.9% 100 ML IVPB SCH ×2 (08:40→19:46)
[2020-01-31] MEDS: HumaLOG 300 UNITS/3 ML VIAL SC PRN ×3 (08:51→22:34)
[2020-01-31] MEDS ORDERED: FLU VACC QS2020-21(6MOS UP)/PF 60 MCG/0.5 ML SYRINGE IM ONE (09:00)
[2020-01-31 11:56] LABS: Hemoglobin 10.9 g/dL (14.0-18.0); Mean Corpuscular HGB CONC 32.2 g/dL (32.0-36.0); Mean Corpuscular Hemoglobin 31.9 pg (27.0-31.0); Mean Corpuscular Volume 99.1 fL (78.0-98.0); Mean Platelet Volume 9.9 fL (7.4-10.4); Platelet Count 145 thou/uL (130-400); RBC Distribution Width 13.3 % (11.5-14.5); Red Blood Cell (RBC) Count 3.44 mill/uL (4.70-6.10); White Blood Cell (WBC) Count 25.9 thou/uL (4.8-10.8)
[2020-01-31 12:01] LABS: Band 50 % (5-11); Lymphocytes 9 % (21-51); MDiff Complete? YES; Metamyelocyte 3 % (0-0); Monocytes 2 % (0-10); Neutrophil 36 % (42-75); Platelet Morphology Comment Appears Adequate; Polychromasia SLIGHT = 2-3 cells (100X) (0-2/hpf); Toxic Granulation SLIGHT
--- NOTE | 2020-01-31 17:26 | PDOC.HOSPP ---
- Subjective Subjective: Pt was seen and examined. Pt remained intubated. - Objective Vital Signs & Weight: Vital Signs (12 hours) Temp Pulse Resp BP Pulse Ox 01/31/20 14:08 122 H 115/70 01/31/20 14:00 30 H 01/31/20 13:49 105 H 111/70 01/31/20 12:00 99.5 F 30 H 01/31/20 10:39 99 107/68 01/31/20 10:00 30 H 01/31/20 08:00 30 H 99 01/31/20 07:30 99 106/68 01/31/20 06:00 30 H Weight Admit Weight 101 lb Weight 100 lb 8.493 oz Most Recent Monitor Data Heart Rate from ECG 119 NIBP 101/66 NIBP BP-Mean 77 Respiration from ECG 30 SpO2 100 I&O: 01/30/20 01/31/20 02/01/20 06:59 06:59 06:59 Intake Total 4279.1 210 Output Total 5410 1830 Balance -1130.9 -1620 Result Diagrams: 01/31/20 05:10 01/31/20 05:10 Additional Labs: Accuchecks 01/31/20 01/31/20 01/31/20 12:37 08:25 05:03 POC Glucose 238 H 320 H 277 H 01/30/20 01/30/20 01/30/20 20:19 18:11 17:10 POC Glucose 109 H 84 80 Hospitalist ROS - Medication Medications: Active Medications Generic Name Dose Route Start Last Admin Trade Name Freq PRN Reason Stop Dose Admin Acetaminophen 650 mg 01/30/20 07:31 01/30/20 21:43 Acetaminophen 325 Mg Suppository MN 650 mg Q6H PRN Administration Fever > 101 or Mild Pain Albuterol/Ipratropium 3 ml 01/30/20 13:00 01/31/20 13:49 Ipratropium/Albuterol Sulfate 3 Ml Neb NEB 3 ml [id number] NURIA Administration Enoxaparin Sodium 30 mg 01/30/20 21:00 01/30/20 20:13 Enoxaparin Sodium 30 Mg/0.3 Ml Syringe SC 30 mg 2100 NURIA Administration Famotidine 20 mg 01/30/20 09:00 01/31/20 08:34 Famotidine/Pf 20 Mg/2ml Vial SLOW IVP 20 mg Q12HR NURIA Administration Levofloxacin 500 mg/ Device 100 mls @ 100 mls/hr 01/30/20 09:00 01/31/20 08:46 IVPB 100 mls Q24HR NURIA Administration Vancomycin HCl 1 gm/ Device 200 mls @ 200 mls/hr 01/30/20 19:00 01/31/20 06:39 IVPB 200 mls 0700,1900 NURIA Administration Cefepime HCl 2 gm/ Sodium 100 mls @ 200 mls/hr 01/30/20 20:00 01/31/20 08:40 Chloride IVPB 100 mls 0800,2000 NURIA Administration Fentanyl Citrate 2,000 mcg/ 100 mls @ 0 mls/hr 01/30/20 15:30 01/31/20 06:39 Sodium Chloride IV 02/29/20 15:30 100 mls INF NURIA Administration Protocol Per Protocol Norepinephrine Bitartrate 8 mg 250 mls @ 0 mls/hr 01/31/20 08:30 01/31/20 08:38 / Dextrose/Water IVPB 250 mls INF PRN Administration TO MAINTAIN MAP > 65 Protocol As Directed Insulin Human Lispro 0 units 01/30/20 07:31 01/31/20 12:39 Humalog 300 Units/3 Ml Vial SC 3 unit .MILD SLIDING SCALE PRN Administration Mild Correctional Scale Lorazepam 2 mg 01/30/20 15:30 01/31/20 10:24 Lorazepam 2 Mg/Ml Vial SLOW IVP 02/29/20 15:30 2 mg Q1H PRN Administration Breakthrough agitation - Exam General - other findings: Patient sedated and intubated Eye: PERRL ENT: normocephalic atraumatic Neck: supple Heart: RRR Respiratory: CTAB Gastrointestinal: soft, non-tender Extremities: no cyanosis Skin: normal turgor Musculoskeletal: normal tone Hosp A/P - Plan This is an unfortunate 54 years old gentleman who has significant past medical history of diabetes type 2, hypertension, tobacco dependent disorder, he was found down at home. Upon arrival, he was found in respiratory distress, with blood glucose of 49. Patient was subsequently intubated in the ED. Hospitalist was asked to admit the patient for further management. Acute hypoxic respiratory failure secondary to pneumonia --pt remains intubated, cont vent mgt as per PCCM --appreciate Dr. Iniguez --updated family member Sepsis with septic shock --Patient was volume resuscitated adequately based on sepsis protocol. he has been started on vasopressure support. We will continue with Levophed to keep map above 65 --Broad-spectrum IV antibiotic with Levaquin, cefepime and vancomycin. Follow cultures, trend lactate level GPC Bacteremia --cont IV abx. consult ID. Pt will need TTE/AMBER to r/o out vegetation --rpt BCx to document clearance PNA -likely due to community-acquired pneumonia, Covid negative --Management as above Diabetes type 2 with hyperglycemia --His blood glucose was 49 on arrival, he is on sulfonylurea at home. We will hold his home medication. Initiate sliding scale for now Hypertension --He is hypotensive in setting of septic shock, hold all his antihypertensive medications Moderate protein calorie malnutrition, POA --Nutrition consult Multiple ulcer at various stages, POA --Wound care consult DVT ppx: Lovenox GI ppx: Pepcid Code Status: Full code Anticipated Dispo: To be determined
--- NOTE | 2020-01-31 18:52 | PRG ---
DATE OF SERVICE: 01/31/2020 SUBJECTIVE: Mr. Cavanaugh remains mechanically ventilated. His hemodynamics are more stable. He is requiring half as much in the way of Levophed. OBJECTIVE: LUNGS: Remarkable for equal breath sounds. HEART: Regular rhythm. ABDOMEN: Soft. EXTREMITIES: Cachectic. LABORATORY DATA: White count is 25.9, hemoglobin 10.9, and platelets 145. Electrolytes are remarkable mainly for mild hyperchloremia. Glucoses are in the 200 to 300 range. The pH is 7.36, pCO2 is 29, and pO2 is 93. Chest radiograph still shows bilateral infiltrates. IMPRESSION: 1. Pneumonia with adult respiratory distress syndrome. 2. Severe protein calorie malnutrition. PLAN: His daughter is at the bedside who informed me that he eats very little if anything during the day and just drinks beer all day long. His poor has been as supportive as she can be. He recently told the family that he wanted to be taken to [place] to . I encouraged her daughter to talk to the about do not resuscitate status. His prognosis for survival more than 3 to 6 months is horrible. I suspect he will survive this admission, but a lot will depend on how he does over the next few days from a gas exchange standpoint. He is not weanable at this point in time. Critical care time, 30 minutes. Job ID: [id number]
[2020-01-31] MEDS: Enoxaparin Sodium 30 MG/0.3 ML SYRINGE SC SCH (20:08)
[2020-01-31] MEDS ORDERED: Bacitracin 1 PK TOP SCH (21:00)
[2020-01-31] MEDS: Bacitracin Zinc Ointment 30 gm TUBE TOP SCH (22:23)
[2020-01-31] MEDS: Propofol 1,000 MG/100 ML VIAL IV PRN (22:24)
[2020-01-31 23:24] LABS: Anion Gap 15 mmol/L (10-20); BUN (Urea Nitrogen) 7 mg/dL (8.4-25.7); Calc. Creatinine Clearance 79 mL/min (70-130); Calcium 8.1 mg/dL (7.8-10.44); Carbon Dioxide 17 mmol/L (22-29); Chloride 106 mmol/L (98-107); Glucose 389 mg/dL (70-105); Potassium 3.8 mmol/L (3.5-5.1); Sodium 134 mmol/L (136-145)
[2020-02-01] MEDS ORDERED: Sodium Chloride 0.9% 1,000 ML IV SCH (00:30)
[2020-02-01] MEDS: Potassium Chloride 40 MEQ in Dextrose 5% in Water 1,000 ML IVPB SCH ×2 (00:36→10:26)
[2020-02-01] MEDS: HumaLOG 300 UNITS/3 ML VIAL SC PRN ×3 (04:26→20:47)
[2020-02-01 05:01] LABS: ALT (SGPT) 22 U/L (8-55); AST (SGOT) 39 U/L (5-34); Albumin 3.5 g/dL (3.5-5.0); Alkaline Phosphatase 144 U/L (40-110); Anion Gap 14 mmol/L (10-20); BUN (Urea Nitrogen) 9 mg/dL (8.4-25.7); Bilirubin, Total 0.8 mg/dL (0.2-1.2); Calc. Creatinine Clearance 85 mL/min (70-130); Calcium 8.2 mg/dL (7.8-10.44); Carbon Dioxide 18 mmol/L (22-29); Chloride 105 mmol/L (98-107); Globulin 2.5 g/dL (2.4-3.5); Glucose 256 mg/dL (70-105); Potassium 4.1 mmol/L (3.5-5.1); Sodium 133 mmol/L (136-145)
[2020-02-01 05:35] LABS: Band 31 % (5-11); Hemoglobin 10.1 g/dL (14.0-18.0); Lymphocytes 14 % (21-51); MDiff Complete? YES; Mean Corpuscular HGB CONC 34.6 g/dL (32.0-36.0); Mean Corpuscular Hemoglobin 33.3 pg (27.0-31.0); Mean Corpuscular Volume 96.2 fL (78.0-98.0); Mean Platelet Volume 9.7 fL (7.4-10.4); Neutrophil 55 % (42-75); Platelet Count 109 thou/uL (130-400); Platelet Morphology Comment Appears Decreased; RBC Distribution Width 13.4 % (11.5-14.5); Red Blood Cell (RBC) Count 3.04 mill/uL (4.70-6.10); White Blood Cell (WBC) Count 17.5 thou/uL (4.8-10.8)
[2020-02-01 07:01] LABS: Actual Bicarbonate (HCO3a) 19.9 mEq/L (22-28); Base Excess (BEa) -2.2 mEq/L (-2.0 to +3.0); CO2 Tension 26.3 mmHg (35.0-45.0); Calcium, Ionized (arterial) 1.16 mmol/L (1.12-1.30); Carboxyhemoglobin (COHb) 0.3 gm% (0.0-3.0); Hemoglobin (Hb) 11.2 g/dL (14.0-18.0); O2 Tension (PaO2), arterial 161.3 mmHg (80.0-100.0); Potassium - ABG Lab 3.86 mmol/L (3.70-5.30)
[2020-02-01 07:02] LABS: Puncture Site RRA
[2020-02-01 07:03] LABS: ALV-art Gradient 162.325 mmHg (0-20)
[2020-02-01] MEDS: Vancomycin 1 GM in Premix Bag 1 BAG IVPB SCH (07:29)
--- NOTE | 2020-02-01 07:49 | RAD ---
Chest AP view INDICATION: History of intubation COMPARISON: Prior exam dated January 31, 2020 FINDINGS: Lungs: Bilateral lower lobe pneumonia is stable. Chronic lung changes are similar. Cardiac silhouette: The cardiomediastinal silhouette appears within normal limits. Pulmonary vasculature: Normal Pleural spaces: No pleural effusion or pneumothorax is demonstrated. Upper abdomen: No abnormality seen. Osseous structures: No acute osseous abnormality. Additional findings: Patient remains intubated with gastric catheter placement. Skin fold is again s een overlying the right hemithorax. Healed rib deformities of the right posterior seventh and eighth ribs are stable. IMPRESSION: Stable bilateral lower lobe pneumonia. Stable tubes and lines. No pneumothorax.
[2020-02-01] MEDS: Cefepime 2 GM in Sodium Chloride 0.9% 100 ML IVPB SCH (08:58)
[2020-02-01] MEDS: Hydrocortisone Sod Succ/PF 100 mg/2 ml Vial IVP SCH ×3 (09:00→20:38)
[2020-02-01] MEDS: Famotidine/PF 20 mg/2ml Vial SLOW IVP SCH ×2 (09:00→20:40)
[2020-02-01] MEDS: Bacitracin Zinc Ointment 30 gm TUBE TOP SCH ×2 (09:01→20:40)
[2020-02-01] MEDS ORDERED: Multivits W-Minerals Liquid 5 ML UDCUP PER TUBE ONE (11:15)
[2020-02-01] MEDS ORDERED: Thiamine HCl 200 MG/2 ML VIAL SLOW IVP SCH (11:15)
[2020-02-01] MEDS ORDERED: Folic Acid 1 MG TAB PER TUBE ONE (11:15)
[2020-02-01] MEDS ORDERED: Multivits W-Minerals Liquid 5 ML UDCUP PER TUBE SCH (12:30)
[2020-02-01] MEDS: Sodium Chloride 0.45% 1,000 ML IV SCH ×2 (12:55→23:22)
--- NOTE | 2020-02-01 14:28 | PDOC.FMACP ---
Advance Care Planning - Problem (1) Palliative care encounter Status: Acute Code(s): Z51.5 - ENCOUNTER FOR PALLIATIVE CARE (2) Chronic alcoholism Status: Chronic Code(s): F10.20 - ALCOHOL DEPENDENCE, UNCOMPLICATED (3) DM type 2 (diabetes mellitus, type 2) Status: Chronic Qualifiers: Diabetes mellitus termite inspector insulin use: without termite inspector use (4) FTT (failure to thrive) in adult Status: Chronic (5) Severe protein-calorie malnutrition Status: Chronic Code(s): E43 - UNSPECIFIED SEVERE PROTEIN-CALORIE MALNUTRITION (6) Atrial fibrillation Status: Resolved Code(s): I48.91 - UNSPECIFIED ATRIAL FIBRILLATION Qualifiers: Atrial fibrillation type: paroxysmal Qualified Code(s): I48.0 - Paroxysmal atrial fibrillation - Note Participants: family, surrogate decision-maker, special officer, palliative care, other (Dr Burk) Summary: Palliative Care addressed Advanced Care Planning with patient sister and his neice. Utilized customer service trainer services, Pamela [id number] ID number. The diagnosis, prognosis and goals of care were discussed. Appropriate forms and documentation to accomplish the goals of care were discussed. All questions were answered. Dr Burk revisited prognosis and poor meaningful recovery. Family elected to transition to DNAR, consent completed and placed in chart. Theydid express they do not want to see Mr Cavanaugh suffer. Discussed transition of care, including compassionate extubation and comfort measures. Family to visit this event and relay decision tomorrow in relation to Goal of Care. Rohith Mars provided prayer and spiritual support. Rohith communicated with Father Wei as it was not known family/patient was [employer]ism. Father Wei here to pray with patient and Family. Palliative Care will follow up with family 02/02/2020 to revisit Goal of Care. Please also refer to Palliative Care notes in note section Time Spent (mins): 60
[2020-02-01] MEDS: Propofol 1,000 MG/100 ML VIAL IV PRN (15:18)
--- NOTE | 2020-02-01 16:14 | PDOC.HOSPP ---
- Subjective Subjective: patient was seen and examined. met with family members and palliative cares, discussed goal of cares/code status. Family elected DNR, and will let us know their decision about goal of care tomorrow or coming days. - Objective Vital Signs & Weight: Vital Signs (12 hours) Pulse Resp BP Pulse Ox 02/01/20 15:46 90 101/61 02/01/20 15:44 92 34 H 99 02/01/20 14:00 29 H 02/01/20 12:00 29 H 02/01/20 10:46 111 H 103/64 02/01/20 10:00 25 H 02/01/20 08:00 25 H 02/01/20 06:44 114 H 88/56 L 02/01/20 06:42 113 H 30 H 99 02/01/20 06:00 30 H Weight Admit Weight 101 lb Weight 100 lb 4.965 oz Most Recent Monitor Data Heart Rate from ECG 84 NIBP 106/69 NIBP BP-Mean 81 Respiration from ECG 25 SpO2 100 I&O: 01/31/20 02/01/20 02/02/20 06:59 06:59 06:59 Intake Total 4279.1 4012.4 490 Output Total 5410 3900 590 Balance -1130.9 112.4 -100 Result Diagrams: 02/01/20 03:50 02/01/20 03:50 Additional Labs: Accuchecks 02/01/20 02/01/20 01/31/20 16:02 04:13 22:27 POC Glucose 369 H 237 H 361 H 01/31/20 16:52 POC Glucose 191 H Radiology Reviewed by me: Yes EKG Reviewed by me: Yes Hospitalist ROS - Medication Medications: Active Medications Generic Name Dose Route Start Last Admin Trade Name Freq PRN Reason Stop Dose Admin Acetaminophen 650 mg 01/30/20 07:31 01/30/20 21:43 Acetaminophen 325 Mg Suppository HI 650 mg Q6H PRN Administration Fever > 101 or Mild Pain Albuterol/Ipratropium 3 ml 01/30/20 13:00 02/01/20 15:44 Ipratropium/Albuterol Sulfate 3 Ml Neb NEB 3 ml [id number] NURIA Administration Bacitracin Zinc 0 gm 01/31/20 21:00 02/01/20 09:01 Bacitracin Zinc Ointment 30 Gm Tube TOP 1 applic Q12HR NURIA Administration Enoxaparin Sodium 30 mg 01/30/20 21:00 01/31/20 20:08 Enoxaparin Sodium 30 Mg/0.3 Ml Syringe SC 30 mg 2100 NURIA Administration Famotidine 20 mg 01/30/20 09:00 02/01/20 09:00 Famotidine/Pf 20 Mg/2ml Vial SLOW IVP 20 mg Q12HR NURIA Administration Hydrocortisone Sodium Succinate 50 mg 02/01/20 09:00 02/01/20 15:18 Hydrocortisone Sod Succ/Pf 100 Mg/2 Ml Vial IVP 50 mg 0300,0900,1500,2100 NURIA Administration Fentanyl Citrate 2,000 mcg/ 100 mls @ 0 mls/hr 01/30/20 15:30 01/31/20 06:39 Sodium Chloride IV 02/29/20 15:30 100 mls INF NURIA Administration Protocol Per Protocol Norepinephrine Bitartrate 8 mg 250 mls @ 0 mls/hr 01/31/20 08:30 01/31/20 17:25 / Dextrose/Water IVPB 250 mls INF PRN Administration TO MAINTAIN MAP > 65 Protocol As Directed Sodium Chloride 1,000 mls @ 100 mls/hr 02/01/20 11:15 02/01/20 12:55 1/2 Normal Saline IV 1,000 mls .Q10H NURIA Administration Insulin Human Lispro 0 units 01/30/20 07:31 02/01/20 16:04 Humalog 300 Units/3 Ml Vial SC 6 unit .MILD SLIDING SCALE PRN Administration Mild Correctional Scale Lorazepam 2 mg 01/30/20 15:30 01/31/20 20:09 Lorazepam 2 Mg/Ml Vial SLOW IVP 02/29/20 15:30 2 mg Q1H PRN Administration Breakthrough agitation Propofol 1,000 mg 01/30/20 15:30 02/01/20 15:18 Propofol 1,000 Mg/100 Ml Vial IV 02/29/20 15:30 1,000 mg INF PRN Administration TO ACHIEVE GOAL RASS Protocol - Exam General - other findings: sedated and intubated Eye: PERRL ENT: normocephalic atraumatic Neck: supple Heart: RRR Respiratory: rhonchi Gastrointestinal: soft Extremities: no cyanosis Skin: normal turgor Neurological - other findings: intubated and sedated Psychiatric: normal affect, normal behavior, A&O x 3 Hosp A/P - Plan This is an unfortunate 54 years old gentleman who has significant past medical history of diabetes type 2, hypertension, tobacco dependent disorder, he was found down at home. Upon arrival, he was found in respiratory distress, with blood glucose of 49. Patient was subsequently intubated in the ED. Hospitalist was asked to admit the patient for further management. Acute hypoxic respiratory failure secondary to pneumonia --pt remains intubated, cont vent mgt as per PCCM --long discussion with patient's family and palliative care team today. Decision was made to change to DNR. Family would like more times to discuss with other members and will let us know about goal of cares; and perhap transition to comfort cares --add steroid stress dose. cont other mgt as per electrical tech Sepsis with septic shock --Patient was volume resuscitated adequately based on sepsis protocol. he has been started on vasopressure support. We will continue with Levophed to keep map above 65 --Broad-spectrum IV antibiotic with Levaquin, cefepime and vancomycin. Follow cultures, trend lactate level GPC Bacteremia --cont IV abx. consult ID. Pt will need TTE/AMBER to r/o out vegetation --rpt BCx to document clearance PNA -likely due to community-acquired pneumonia, Covid negative --Management as above Diabetes type 2 with hyperglycemia --His blood glucose was 49 on arrival, he is on sulfonylurea at home. We will hold his home medication. Initiate sliding scale for now Hypertension --He is hypotensive in setting of septic shock, hold all his antihypertensive medications Moderate protein calorie malnutrition, POA --Nutrition consult Multiple ulcer at various stages, POA --Wound care consult DVT ppx: Lovenox GI ppx: Pepcid Code Status: Full code Anticipated Dispo: To be determined
--- NOTE | 2020-02-01 16:31 | PRG ---
DATE OF SERVICE: 02/01/2020 SUBJECTIVE: The patient remains mechanically ventilated. OBJECTIVE: VITAL SIGNS: Heart rate is in the 90s, blood pressure 101/61, respiratory rate is in the 30s, oximetry is 99. LUNGS: Remarkable for coarse equal breath sounds. HEART: Regular rhythm. ABDOMEN: Soft. LABORATORY DATA: / blood cultures positive for Staph, this was methicillin sensitive. White count 17.5, hemoglobin 10.1, and platelets 109,000. Electrolytes are unremarkable, creatinine is 0.63. Blood sugars are between 256 and 369 this afternoon. IMPRESSION: Staphylococcus aureus bacteremia, most likely source would be one of his many cutaneous lesions as to be assume that he has endocarditis. I suspect his infiltrates are related to Staph aureus and I also suspect that there is a component of adult respiratory distress syndrome leading to his respiratory failure. He will need long-term IV antibiotics. His prognosis for any type of functional recovery I think is extremely poor. Family met with Palliative Care today, made a do not resuscitate patient. His x-ray does not look horrible. His gas exchange is improving. His PO2 is 161 today and his pH 7.5. We will decrease ventilatory support. Probably we should attempt extubation sometime early next week unless the family wants to withdraw support. Bed rest. Mechanical ventilation for more than another 2 or 3 days will likely lead to the weakness that he cannot recover from. It is unlikely in my opinion he can recover from his current state. Job ID: [id number]
[2020-02-01] MEDS: cefTRIAXone\\ROCEPHIN 2 GM in Sodium Chloride 0.9% 100 ML IVPB SCH (20:39)
[2020-02-01] MEDS: Enoxaparin Sodium 30 MG/0.3 ML SYRINGE SC SCH (20:39)
[2020-02-02] MEDS: HumaLOG 300 UNITS/3 ML VIAL SC PRN ×5 (00:29→20:06)
[2020-02-02] MEDS: Hydrocortisone Sod Succ/PF 100 mg/2 ml Vial IVP SCH ×4 (02:28→20:02)
[2020-02-02] MEDS: Propofol 1,000 MG/100 ML VIAL IV PRN (03:39)
[2020-02-02 04:43] LABS: Band 36 % (5-11); Hemoglobin 9.8 g/dL (14.0-18.0); Lymphocytes 10 % (21-51); MDiff Complete? YES; Mean Corpuscular HGB CONC 34.6 g/dL (32.0-36.0); Mean Corpuscular Volume 95.5 fL (78.0-98.0); Mean Platelet Volume 10.2 fL (7.4-10.4); Monocytes 2 % (0-10); Neutrophil 52 % (42-75); Platelet Count 105 thou/uL (130-400); Platelet Morphology Comment Appears Decreased; RBC Distribution Width 13.2 % (11.5-14.5); Red Blood Cell (RBC) Count 2.97 mill/uL (4.70-6.10); White Blood Cell (WBC) Count 11.4 thou/uL (4.8-10.8)
[2020-02-02 04:59] LABS: ALT (SGPT) 32 U/L (8-55); AST (SGOT) 36 U/L (5-34); Albumin 3.1 g/dL (3.5-5.0); Alkaline Phosphatase 170 U/L (40-110); Anion Gap 13 mmol/L (10-20); BUN (Urea Nitrogen) 13 mg/dL (8.4-25.7); Bilirubin, Total 0.5 mg/dL (0.2-1.2); Calc. Creatinine Clearance 93 mL/min (70-130); Calcium 8.1 mg/dL (7.8-10.44); Carbon Dioxide 19 mmol/L (22-29); Chloride 104 mmol/L (98-107); Globulin 2.7 g/dL (2.4-3.5); Glucose 203 mg/dL (70-105); Potassium 3.3 mmol/L (3.5-5.1); Protein, Total 5.8 g/dL (6.0-8.3); Sodium 133 mmol/L (136-145)
[2020-02-02 07:05] LABS: Base Excess (BEa) -0.1 mEq/L (-2.0 to +3.0); Calcium, Ionized (arterial) 1.15 mmol/L (1.12-1.30); Carboxyhemoglobin (COHb) 0.3 gm% (0.0-3.0); Hemoglobin (Hb) 10.9 g/dL (14.0-18.0); O2 Tension (PaO2), arterial 161.9 mmHg (80.0-100.0); Potassium - ABG Lab 3.32 mmol/L (3.70-5.30)
[2020-02-02 07:10] LABS: pH, Arterial 7.56 (7.35-7.45)
[2020-02-02 07:11] LABS: ALV-art Gradient 93.425 mmHg (0-20); CO2 Tension 23.9 mmHg (35.0-45.0); Puncture Site RRA
--- NOTE | 2020-02-02 08:32 | RAD ---
FRONTAL RADIOGRAPH CHEST: Date: 02/02/2020 COMPARISON: 02/01/2020. HISTORY: Respiratory distress, intubated patient. FINDINGS: Stable endotracheal tube and nasogastric tube. There is mild linear interstitial density in the left base, improved when compared to prior imaging. There is hazy air space disease within the right base, nonspecific and improved as well. Significant interval improvement in diffuse interstitial opacity s een on the prior examination noted. IMPRESSION: Marked interval improvement in aeration within both lungs. Residual nonspecific linear density in the bases, right greater than left. Follow-up to full resolution advised. POS: [facility]
--- NOTE | 2020-02-02 08:58 | PRG ---
DATE OF SERVICE: 02/02/2020 SUBJECTIVE: Mitchel Cavanaugh remains ventilated. OBJECTIVE: VITAL SIGNS: Heart rate is 80, blood pressure 92/66, respiratory rate is 25. LUNGS: Clear anteriorly. HEART: Regular rhythm. ABDOMEN: Soft. IMAGING: Chest x-ray continues to improve. LABORATORY DATA: White count 11.4, hemoglobin 9.8, platelets 105. PH 7.56, CO2 23, PO2 161. Electrolytes are unremarkable. Creatinine is 0.58. IMPRESSION: 1. Respiratory failure associated with Staph aureus bacteremia and adult respiratory distress syndrome. 2. Probable endocarditis. 3. Alcoholism with virtually no protein intake on a daily basis. 4. Severe protein calorie malnutrition. 5. ? coexistent alcoholic cardiomyopathy. 6. Anemia of chronic disease. 7. Diabetes. We will continue ventilatory support. His support will be decreased today. I would work towards weaning over the next 48 to 72 hours and then would not recommend re-intubation once he is extubated. Critical care time was 30 min. Job ID: [id number] MTDD
[2020-02-02] MEDS: Sodium Chloride 0.45% 1,000 ML IV SCH ×2 (09:11→13:58)
[2020-02-02] MEDS: Potassium Chloride 20 MEQ in Premix Bag 1 BAG IVPB SCH ×2 (09:16→11:25)
[2020-02-02] MEDS: Bacitracin Zinc Ointment 30 gm TUBE TOP SCH ×2 (09:16→20:01)
[2020-02-02] MEDS: Folic Acid 1 MG TAB PER TUBE SCH (09:17)
[2020-02-02] MEDS: Famotidine/PF 20 mg/2ml Vial SLOW IVP SCH (09:17)
[2020-02-02] MEDS: Thiamine HCl 200 MG/2 ML VIAL SLOW IVP SCH (09:18)
[2020-02-02] MEDS: Multivits W-Minerals Liquid 5 ML UDCUP PER TUBE SCH (09:18)
--- NOTE | 2020-02-02 13:34 | PDOC.HOSPP ---
- Subjective Subjective: remains intubated, chest xr improved. no fever. code changed to DNR yesterday. - Objective Vital Signs & Weight: Vital Signs (12 hours) Pulse Resp BP Pulse Ox 02/02/20 12:00 20 02/02/20 10:18 96 92/72 02/02/20 10:00 19 02/02/20 08:00 27 H 100 02/02/20 06:49 81 92/66 02/02/20 06:48 81 25 H 99 02/02/20 06:00 25 H 02/02/20 04:00 25 H 02/02/20 02:45 97 02/02/20 02:00 25 H Weight Admit Weight 101 lb Weight 101 lb 13.657 oz Most Recent Monitor Data Heart Rate from ECG 93 NIBP 90/64 NIBP BP-Mean 72 Respiration from ECG 31 SpO2 100 I&O: 02/01/20 02/02/20 02/03/20 06:59 06:59 06:59 Intake Total 4012.4 2212.9 Output Total 3900 1675 395 Balance 112.4 537.9 -395 Result Diagrams: 02/02/20 04:00 02/02/20 04:00 Additional Labs: Accuchecks 02/02/20 02/02/20 02/01/20 11:12 03:59 23:34 POC Glucose 365 H 200 H 289 H 02/01/20 02/01/20 20:23 16:02 POC Glucose 372 H 369 H Radiology Reviewed by me: Yes EKG Reviewed by me: Yes Hospitalist ROS - Medication Medications: Active Medications Generic Name Dose Route Start Last Admin Trade Name Freq PRN Reason Stop Dose Admin Acetaminophen 650 mg 01/30/20 07:31 01/30/20 21:43 Acetaminophen 325 Mg Suppository [place] 650 mg Q6H PRN Administration Fever > 101 or Mild Pain Albuterol/Ipratropium 3 ml 01/30/20 13:00 02/02/20 06:48 Ipratropium/Albuterol Sulfate 3 Ml Neb NEB 3 ml [id number] NURIA Administration Bacitracin Zinc 0 gm 01/31/20 21:00 02/02/20 09:16 Bacitracin Zinc Ointment 30 Gm Tube TOP 1 applic Q12HR NURIA Administration Enoxaparin Sodium 30 mg 01/30/20 21:00 02/01/20 20:39 Enoxaparin Sodium 30 Mg/0.3 Ml Syringe SC 30 mg 2100 NURIA Administration Folic Acid 1 mg 02/02/20 09:00 02/02/20 09:17 Folic Acid 1 Mg Tab PER TUBE 1 mg DAILY NURIA Administration Hydrocortisone Sodium Succinate 50 mg 02/01/20 09:00 02/02/20 09:17 Hydrocortisone Sod Succ/Pf 100 Mg/2 Ml Vial IVP 50 mg 0300,0900,1500,2100 NURIA Administration Fentanyl Citrate 2,000 mcg/ 100 mls @ 0 mls/hr 01/30/20 15:30 01/31/20 06:39 Sodium Chloride IV 02/29/20 15:30 100 mls INF NURIA Administration Protocol Per Protocol Norepinephrine Bitartrate 8 mg 250 mls @ 0 mls/hr 01/31/20 08:30 01/31/20 17:25 / Dextrose/Water IVPB 250 mls INF PRN Administration TO MAINTAIN MAP > 65 Protocol As Directed Ceftriaxone Sodium 2 gm/ 100 mls @ 200 mls/hr 02/01/20 21:00 02/01/20 20:39 Sodium Chloride IVPB 100 mls 2100 NURIA Administration Sodium Chloride 1,000 mls @ 100 mls/hr 02/01/20 11:15 02/02/20 09:11 1/2 Normal Saline IV 1,000 mls .Q10H NURIA Administration Insulin Human Lispro 0 units 01/30/20 07:31 02/02/20 11:15 Humalog 300 Units/3 Ml Vial SC 6 unit .MILD SLIDING SCALE PRN Administration Mild Correctional Scale Iron/Minerals/Multivitamins 15 ml 02/02/20 09:00 02/02/20 09:18 Multivits W-Minerals Liquid 5 Ml Udcup PER TUBE 15 ml DAILY NURIA Administration Lorazepam 2 mg 01/30/20 15:30 01/31/20 20:09 Lorazepam 2 Mg/Ml Vial SLOW IVP 02/29/20 15:30 2 mg Q1H PRN Administration Breakthrough agitation Propofol 1,000 mg 01/30/20 15:30 02/02/20 03:39 Propofol 1,000 Mg/100 Ml Vial IV 02/29/20 15:30 1,000 mg INF PRN Administration TO ACHIEVE GOAL RASS Protocol Thiamine HCl 100 mg 02/02/20 09:00 02/02/20 09:18 Thiamine Hcl 200 Mg/2 Ml Vial SLOW IVP 02/03/20 09:01 100 mg DAILY NURIA Administration - Exam General Appearance: NAD Eye: PERRL ENT: normocephalic atraumatic Neck: supple Heart: RRR Respiratory: rales Gastrointestinal: soft, non-tender Extremities: no cyanosis, no clubbing, no edema Skin: normal turgor Neurological: cranial nerve grossly intact Musculoskeletal: normal tone, normal strength Hosp A/P - Plan This is an unfortunate 54 years old gentleman who has significant past medical history of diabetes type 2, hypertension, tobacco dependent disorder, he was found down at home. Upon arrival, he was found in respiratory distress, with blood glucose of 49. Patient was subsequently intubated in the ED. Hospitalist was asked to admit the patient for further management. Acute hypoxic respiratory failure secondary to pneumonia --pt remains intubated, however, ventilatory supports has decrease. --CXR better today. --will cont IV abx and current mgt. Code status changed to DNR Sepsis with septic shock --Patient was volume resuscitated adequately based on sepsis protocol. --We will continue with Levophed to keep map above 65, wean as rody --Broad-spectrum IV antibiotic with Levaquin, cefepime and vancomycin --ID consulted. Cont stress dose steroid GPC Bacteremia - MSSA, likely from his cutaneous wounds/ulcers --cont IV abx. consult ID. Pt will need TTE/AMBER to r/o out vegetation --rpt BCx to document clearance PNA - likely due to community-acquired pneumonia, Covid negative --Management as above Diabetes type 2 with hyperglycemia --His blood glucose was 49 on arrival, he is on sulfonylurea at home. We will hold his home medication. Initiate sliding scale for now Hypertension --He is hypotensive in setting of septic shock, hold all his antihypertensive medications Moderate protein calorie malnutrition, POA --Nutrition consult Multiple ulcer at various stages, POA --Wound care consult DVT ppx: Lovenox GI ppx: Pepcid Code Status: Full code Anticipated Dispo: To be determined
[2020-02-02] MEDS: Enoxaparin Sodium 30 MG/0.3 ML SYRINGE SC SCH (20:02)
[2020-02-02] MEDS: cefTRIAXone\\ROCEPHIN 2 GM in Sodium Chloride 0.9% 100 ML IVPB SCH (20:03)
[2020-02-02] MEDS: Famotidine 20 MG TAB PER TUBE SCH (20:05)
[2020-02-03] MEDS: Sodium Chloride 0.45% 1,000 ML IV SCH ×2 (00:37→10:46)
[2020-02-03] MEDS: Propofol 1,000 MG/100 ML VIAL IV PRN ×2 (00:38→10:46)
[2020-02-03 02:44] VITALS: BMI 17.2
[2020-02-03] MEDS: Hydrocortisone Sod Succ/PF 100 mg/2 ml Vial IVP SCH ×2 (03:32→10:04)
[2020-02-03] MEDS: HumaLOG 300 UNITS/3 ML VIAL SC PRN ×3 (03:40→13:20)
[2020-02-03 05:53] LABS: ALT (SGPT) 30 U/L (8-55); AST (SGOT) 26 U/L (5-34); Albumin 2.9 g/dL (3.5-5.0); Alkaline Phosphatase 196 U/L (40-110); Anion Gap 16 mmol/L (10-20); BUN (Urea Nitrogen) 15 mg/dL (8.4-25.7); Bilirubin, Total 0.3 mg/dL (0.2-1.2); Calc. Creatinine Clearance 92 mL/min (70-130); Calcium 8.3 mg/dL (7.8-10.44); Carbon Dioxide 18 mmol/L (22-29); Chloride 104 mmol/L (98-107); Globulin 2.9 g/dL (2.4-3.5); Glucose 421 mg/dL (70-105); Potassium 3.7 mmol/L (3.5-5.1); Protein, Total 5.8 g/dL (6.0-8.3); Sodium 134 mmol/L (136-145)
[2020-02-03 06:04] LABS: Hemoglobin 10.7 g/dL (14.0-18.0); Mean Corpuscular HGB CONC 33.8 g/dL (32.0-36.0); Mean Corpuscular Hemoglobin 33.2 pg (27.0-31.0); Mean Corpuscular Volume 98.4 fL (78.0-98.0); Platelet Count 101 thou/uL (130-400); RBC Distribution Width 13.4 % (11.5-14.5); Red Blood Cell (RBC) Count 3.23 mill/uL (4.70-6.10); White Blood Cell (WBC) Count 8.4 thou/uL (4.8-10.8)
[2020-02-03 06:05] LABS: Band 5 % (5-11); Hypochromia SLIGHT = 6-15 cells (100X) (0-5/hpf); Lymphocytes 20 % (21-51); MDiff Complete? YES; Monocytes 5 % (0-10); Neutrophil 70 % (42-75); Platelet Morphology Comment Appears Decreased
[2020-02-03] MEDS: Thiamine HCl 200 MG/2 ML VIAL SLOW IVP SCH (10:03)
[2020-02-03] MEDS: Bacitracin Zinc Ointment 30 gm TUBE TOP SCH (10:05)
[2020-02-03] MEDS: Multivits W-Minerals Liquid 5 ML UDCUP PER TUBE SCH (10:05)
[2020-02-03] MEDS: Famotidine 20 MG TAB PER TUBE SCH (10:05)
[2020-02-03] MEDS: Folic Acid 1 MG TAB PER TUBE SCH (10:05)
[2020-02-03 10:14] VITALS: BP 108/75
[2020-02-03 13:09] VITALS: TEMP 98.3
--- NOTE | 2020-02-03 13:54 | PRG ---
DATE OF SERVICE: 02/03/2020 I have had a conversation with the patient's sister who is POA with the patient's niece as installation and repair technician. We have explained the current situation. They report that they have spoken amongst multiple family members and all agree with withdrawal of support and provision of comfort care. The patient has been telling them for the past month or more that he is having a lot of pain and quality of life has been poor and that he would like to move on to [facility]. They take that as acceptance of his current status. We will have him seen by the hospice team shortly and then pursue extubation and comfort care. I have emphasized to them that the exact course that the patient will follow is difficult to project, but they are welcome to stay as much as they like and we will maximize comfort measures. Job ID: [id number]
[2020-02-03] MEDS ORDERED: Dextrose 50% Abboject 50 ML SYRINGE SLOW IVP PRN (13:57)
[2020-02-03] MEDS ORDERED: HumaLOG 300 UNITS/3 ML VIAL SC PRN (13:57)
[2020-02-03] MEDS ORDERED: Dextrose 5% in Water 1,000 ML IV PRN (13:57)
--- NOTE | 2020-02-03 13:58 | PDOC.HOSPP ---
- Subjective Encounter Date: 02/03/20 Encounter Time: 10:20 Subjective: Talk to the RN. Patient still on vent. he is on propofol as well. He opens his eyes for verbal stimulation. Discussed with RN. His blood glucose is high - Objective Vital Signs & Weight: Vital Signs (12 hours) Temp Pulse Resp BP Pulse Ox 02/03/20 12:00 98.3 F 18 02/03/20 10:09 73 108/75 02/03/20 10:00 18 02/03/20 08:01 63 103/66 02/03/20 08:00 98.1 F 61 18 99 02/03/20 06:00 18 02/03/20 04:00 98.1 F 18 02/03/20 02:00 98.2 F 18 Weight Admit Weight 101 lb Weight 103 lb 9.876 oz Most Recent Monitor Data Heart Rate from ECG 69 NIBP 100/65 NIBP BP-Mean 76 Respiration from ECG 18 SpO2 100 I&O: 02/02/20 02/03/20 02/04/20 06:59 06:59 06:59 Intake Total 2212.9 2147 Output Total 1675 1720 440 Balance 537.9 427 -440 Result Diagrams: 02/03/20 04:00 02/03/20 04:00 Additional Labs: Accuchecks 02/03/20 02/03/20 02/03/20 13:17 08:34 03:39 POC Glucose 347 H 348 H 357 H 02/02/20 01/30/20 19:48 12:03 POC Glucose 338 H 15 L* Hospitalist ROS - Medication Medications: Active Medications Generic Name Dose Route Start Last Admin Trade Name Freq PRN Reason Stop Dose Admin Acetaminophen 650 mg 01/30/20 07:31 01/30/20 21:43 Acetaminophen 325 Mg Suppository [place] 650 mg Q6H PRN Administration Fever > 101 or Mild Pain Albuterol/Ipratropium 3 ml 01/30/20 13:00 02/03/20 08:00 Ipratropium/Albuterol Sulfate 3 Ml Neb NEB 3 ml [id number] NURIA Administration Bacitracin Zinc 0 gm 01/31/20 21:00 02/03/20 10:05 Bacitracin Zinc Ointment 30 Gm Tube TOP 1 applic Q12HR NURIA Administration Enoxaparin Sodium 30 mg 01/30/20 21:00 02/02/20 20:02 Enoxaparin Sodium 30 Mg/0.3 Ml Syringe SC 30 mg 2100 NURIA Administration Famotidine 20 mg 02/02/20 21:00 02/03/20 10:05 Famotidine 20 Mg Tab PER TUBE 20 mg Q12HR NURIA Administration Folic Acid 1 mg 02/02/20 09:00 02/03/20 10:05 Folic Acid 1 Mg Tab PER TUBE 1 mg DAILY NRUIA Administration Hydrocortisone Sodium Succinate 50 mg 02/01/20 09:00 02/03/20 10:04 Hydrocortisone Sod Succ/Pf 100 Mg/2 Ml Vial IVP 50 mg 0300,0900,1500,2100 NURIA Administration Fentanyl Citrate 2,000 mcg/ 100 mls @ 0 mls/hr 01/30/20 15:30 01/31/20 06:39 Sodium Chloride IV 02/29/20 15:30 100 mls INF NURIA Administration Protocol Per Protocol Norepinephrine Bitartrate 8 mg 250 mls @ 0 mls/hr 01/31/20 08:30 01/31/20 17:25 / Dextrose/Water IVPB 250 mls INF PRN Administration TO MAINTAIN MAP > 65 Protocol As Directed Ceftriaxone Sodium 2 gm/ 100 mls @ 200 mls/hr 02/01/20 21:00 02/02/20 20:03 Sodium Chloride IVPB 100 mls 2100 NURIA Administration Sodium Chloride 1,000 mls @ 100 mls/hr 02/01/20 11:15 02/03/20 10:46 1/2 Normal Saline IV 1,000 mls .Q10H NURIA Administration Insulin Human Lispro 0 units 01/30/20 07:31 02/03/20 13:20 Humalog 300 Units/3 Ml Vial SC 5 unit .MILD SLIDING SCALE PRN Administration Mild Correctional Scale Iron/Minerals/Multivitamins 15 ml 02/02/20 09:00 02/03/20 10:05 Multivits W-Minerals Liquid 5 Ml Udcup PER TUBE 15 ml DAILY NURIA Administration Lorazepam 2 mg 01/30/20 15:30 01/31/20 20:09 Lorazepam 2 Mg/Ml Vial SLOW IVP 02/29/20 15:30 2 mg Q1H PRN Administration Breakthrough agitation Propofol 1,000 mg 01/30/20 15:30 02/03/20 10:46 Propofol 1,000 Mg/100 Ml Vial IV 02/29/20 15:30 1,000 mg INF PRN Administration TO ACHIEVE GOAL RASS Protocol - Exam General - other findings: On vent Eye: PERRL ENT: normocephalic atraumatic Heart: RRR Respiratory: CTAB, normal chest expansion Gastrointestinal: soft, normal bowel sounds Neurological: no focal deficits Psychiatric: not oriented
--- NOTE | 2020-02-03 14:25 | PRG ---
DATE OF SERVICE: 02/03/2020 SUBJECTIVE: The patient continues to receive ventilatory support with rate of 18, tidal volume 420, PEEP of 8, FiO2 of 40%. It is my understanding that family is coming today to discuss extubation. I have been told that the patient had not wished ventilatory support. I think the challenging discussion will be planning following extubation. If possible, I would strongly encourage the family to take the patient home, and if it was his wish, try to get him back to [place]. This appears to be the long-term residual of history of chronic alcohol abuse. PHYSICAL EXAMINATION: VITAL SIGNS: Current blood pressure 108/75, heart rate 73, saturation 100% on FiO2 of 40. GENERAL: He is mildly sedated. He is orally intubated. LUNGS: Show rhonchi, but no wheezing. HEART: Regular rate and rhythm. There is no audible murmur. No gallop. ABDOMEN: Minimally distended without palpable mass. EXTREMITIES: No cyanosis. He has 1+ edema. LABORATORY DATA: White count 8400, hemoglobin is 10.7 with hematocrit of 31.8 and platelet count 101,000. He has 70 segs and 5 bands. Chemistries include sodium 134, potassium 3.7, chloride 104, CO2 is 18, BUN 15, creatinine 0.6. Blood sugars as high as 420, but no lower than 350. His albumin is 2.9. Liver tests are normal. IMPRESSION: 1. Respiratory failure secondary to Staph bacteremia and associated sepsis/ARDS. 2. History of alcoholism. 3. Diabetes, poorly controlled. PLAN: We will continue current supportive therapies. The family is coming today to discuss possible extubation in accordance with the patient's previously stated wishes. They would also appear to be consistent with his actions reflecting his ongoing alcohol abuse. Other therapies continue without change at this time. TIME SPENT: Critical care 30 minutes. Job ID: [id number]
--- NOTE | 2020-02-03 14:47 | PDOC.DS.DS ---
Provider - Provider Date of Admission: 01/30/20 06:52 Admitting Provider: Daya Nowak MD Primary Care Physician: ARMIN LEAL MD Course - Hospital Course Hospital Course: 54 years old gentleman who has significant past medical history of diabetes type 2, hypertension, tobacco dependent disorder, he was found down at home. Upon arrival, he was found in respiratory distress, with blood glucose of 49. Patient was subsequently intubated in the ED. Hospitalist was asked to admit the patient for further management. Acute hypoxic respiratory failure secondary to pneumonia ARDS --pt remains intubated, however, ventilatory supports has decrease. - Sepsis with septic shock--secondary to staph aureus bacteremia --Patient was volume resuscitated adequately based on sepsis protocol. --We will continue with Levophed to keep map above 65, wean as rody --Broad-spectrum IV antibiotic with Levaquin, cefepime and vancomycin --ID consulted. Cont stress dose steroid GPC Bacteremia - MSSA, likely from his cutaneous wounds/ulcers Infective endocarditis cannot be ruled out --cont IV abx. consult ID. Pt will need TTE/AMBER to r/o out vegetation --rpt BCx to document clearance PNA - likely due to community-acquired pneumonia, Covid negative --Management as above Diabetes type 2 with hyperglycemia --His blood glucose was 49 on arrival, he is on sulfonylurea at home. - Initiate sliding scale for now Hypertension --He is hypotensive in the setting of septic shock, hold all his antihypertensive medications Moderate protein calorie malnutrition, POA --Nutrition consult Multiple ulcer at various stages, POA --Wound care consult DVT ppx: Lovenox GI ppx: Pepcid Code Status: DNR Anticipated Dispo: Later in the day, his care has been changed. Hospice will be taking over. Discharge orders placed for inpatient hospice. After hospice comes on board probable withdrawal of his vent management. Prognosis guarded. Resuscitation Status: 02/01/20 14:16 Resuscitation Status Routine Co-Sign Provider: Resuscitation Status: DNAR: NO Resuscitation Discussed with: sister Additional comments: sister who is surrogate decision maker as patient has no , children. - Labs Lab Results: 02/03/20 04:00 02/03/20 04:00 Abnormal Lab Results - Last 48 hrs 02/02/20 04:00: Sodium 133 L, Potassium 3.3 L, Carbon Dioxide 19 L, Creatinine 0.58 L, AST 36 H, Alkaline Phosphatase 170 H, Serum Total Protein 5.8 L, Albumin 3.1 L, Albumin/Globulin Ratio 1.1 L 02/02/20 04:00: WBC 11.4 H, RBC 2.97 L, Hgb 9.8 L, Hct 28.4 L, MCH 33.0 H, Plt Count 105 L, Band Neuts % (Manual) 36 H, Lymphocytes % (Manual) 10 L, Plt Morphology Comment Appears Decreased L 02/02/20 06:51: Bicarbonate Actual 21.0 L, ABG pH 7.56 H*, ABG pCO2 23.9 L*, ABG pO2 161.9 H, ABG O2 Sat (Measured) 99.3 H, ABG O2 Content 15.5 L, ABG Hematocrit 32.0 L, ABG Hemoglobin 10.9 L, ABG Oxyhemoglobin 98.7 H, A-a O2 Gradient 93.425 H, Sodium 131 L, Potassium 3.32 L 02/03/20 04:00: Sodium 134 L, Carbon Dioxide 18 L, Creatinine 0.60 L, Alkaline Phosphatase 196 H, Serum Total Protein 5.8 L, Albumin 2.9 L, Albumin/Globulin Ratio 1.0 L 02/03/20 04:00: RBC 3.23 L, Hgb 10.7 L, Hct 31.8 L, MCV 98.4 H, MCH 33.2 H, Plt Count 101 L, MPV 11.0 H, Lymphocytes % (Manual) 20 L, Plt Morphology Comment Appears Decreased L Microbiology - Entire Visit 01/30/20 11:00 Bronchial Washing Respiratory Culture - Final 01/30/20 05:32 Central Line - Right Common Femoral Vein Blood Culture - Final Staphylococcus aureus 01/30/20 05:54 Central Line - Right Common Femoral Vein Blood Culture - Final Staphylococcus aureus - Physical Exam Vitals: Vital Signs (12 hours) Temp Pulse Resp BP Pulse Ox 02/03/20 14:00 18 02/03/20 12:00 98.3 F 18 02/03/20 10:09 73 108/75 02/03/20 10:00 18 02/03/20 08:01 63 103/66 02/03/20 08:00 98.1 F 61 18 99 02/03/20 06:00 18 02/03/20 04:00 98.1 F 18 Weight Admit Weight 101 lb Weight 103 lb 9.876 oz Most Recent Monitor Data Heart Rate from ECG 64 NIBP 111/68 NIBP BP-Mean 82 Respiration from ECG 18 SpO2 100 Physical Exam: The patient was seen and examined on the day of discharge. Plan - Discharge Medications Home Medications: Medication Instructions Recorded Confirmed Type glipiZIDE [Glipizide] 5 mg PO DAILY #30 tablet 11/27/19 Rx Allergies: No Known Drug Allergies Allergy (Verified 11/23/19 23:54) - Discharge Instructions Activity:: Activity as Tolerated Nourishment:: Tube Feeding Diet - Follow up Plan Referrals: ARMIN LEAL MD [Primary Care Provider] - Disposition: HOME Quality - Care Measures CORE MEASURES:: N/A
== END 2020-02-03 14:43 | disposition hospice, inpatient (51) | DRG 870 ==
LOC: ERS 04:53 → CCU 06:52
PROVIDERS: ADMIT Internal Medicine; ATTEND Internal Medicine
PROC: 5A1955Z Respiratory Ventilation, Greater than 96 Consecutive Hours (ICD-10-PCS; principal; 2020-01-30)
PROC: 06HY33Z Insertion of Infusion Device into Lower Vein, Percutaneous Approach (ICD-10-PCS; 2020-01-30)
PROC: 0BH17EZ Insertion of Endotracheal Airway into Trachea, Via Natural or Artificial Opening (ICD-10-PCS; 2020-01-30)
PROC: 3E033XZ Introduction of Vasopressor into Peripheral Vein, Percutaneous Approach (ICD-10-PCS; 2020-01-30)
PROC: B54BZZA Ultrasonography of Right Lower Extremity Veins, Guidance (ICD-10-PCS; 2020-01-30)
PROC: 0D9670Z Drainage of Stomach with Drainage Device, Via Natural or Artificial Opening (ICD-10-PCS; 2020-01-30)
DX: A41.01 Sepsis due to Methicillin susceptible Staphylococcus aureus (principal); R65.21 Severe sepsis with septic shock; J80 Acute respiratory distress syndrome; J18.9 Pneumonia, unspecified organism; I33.0 Acute and subacute infective endocarditis; E43 Unspecified severe protein-calorie malnutrition; Z68.1 Body mass index [BMI] 19.9 or less, adult; R64 Cachexia; I42.6 Alcoholic cardiomyopathy; Z66 Do not resuscitate; Z51.5 Encounter for palliative care; Z20.828 Contact with and (suspected) exposure to other viral communicable diseases; E11.65 Type 2 diabetes mellitus with hyperglycemia; I10 Essential (primary) hypertension; Z78.1 Physical restraint status; F17.210 Nicotine dependence, cigarettes, uncomplicated; I48.0 Paroxysmal atrial fibrillation; L89.90 Pressure ulcer of unspecified site, unspecified stage; F10.20 Alcohol dependence, uncomplicated; D63.8 Anemia in other chronic diseases classified elsewhere; E11.649 Type 2 diabetes mellitus with hypoglycemia without coma; Z79.84 Long term (current) use of oral hypoglycemic drugs; Z79.899 Other long term (current) drug therapy
CPT/HCPCS: 31500; 36415; 36416; 36556; 36600; 51702; 70450; 71045; 80053; 80202; 80306; 80307; 81001; 82805; 83036; 83605; 83735; 83930; 83935; 84100; 84443; 84484; 85007; 85025; 85027; 87040; 87070; 87077; 87149; 87186; 87205; 93005; 94002; 94003; 94640; 94760; 96365; 96367; 96368; 96375; J0692; J0696; J1160; J1650; J1720; J1956; J2060; J2250; J2704; J3010; J3370; J3411; J3475; J3480; J3490; J7070; J7620; P9047; S0028; U0002

== ENCOUNTER 2020-02-03 14:59 | Inpatient (IN) | payer OTHER ==
[2020-02-03 15:20] VITALS: BMI 17.2
[2020-02-03] MEDS ORDERED: diphenhydrAMINE 25 MG CAP PO PRN (15:26)
[2020-02-03] MEDS ORDERED: Haloperidol Lactate 5 MG/ML VIAL SLOW IVP PRN ×2 (15:29→15:30)
[2020-02-03] MEDS ORDERED: Ondansetron PF 4 MG/2 ML Vial IVP PRN (15:29)
[2020-02-03] MEDS ORDERED: Bisacodyl 10 MG SUPP PR PRN (15:31)
[2020-02-03] MEDS ORDERED: Lorazepam 2 MG/ML VIAL SLOW IVP PRN (15:31)
[2020-02-03] MEDS ORDERED: Dexamethasone 4 mg/ml Vial SLOW IVP PRN (15:31)
[2020-02-03] MEDS ORDERED: BIOTENE MOUTH SPRAY 44.3 ML MM PRN (15:32)
[2020-02-03] MEDS ORDERED: Glycopyrrolate 0.4 MG/ 2 ML VIAL SLOW IVP PRN (15:33)
[2020-02-03] MEDS ORDERED: Atropine Sulfate 1% Ophth Soln 5 ml Bottle PO PRN (15:34)
[2020-02-03] MEDS ORDERED: Artificial Tear Sol 15 ML BOT EA EYE PRN (15:35)
[2020-02-03] MEDS: Scopolamine 1.5 mg/72 hour Patch TOP SCH (16:05)
[2020-02-03] MEDS: Lorazepam 2 MG/ML VIAL SLOW IVP PRN (20:58)
[2020-02-03] MEDS: Morphine 2 MG/ML VIAL SLOW IVP PRN (20:58)
[2020-02-04] MEDS: Morphine 2 MG/ML VIAL SLOW IVP PRN (20:01)
[2020-02-04] MEDS: Lorazepam 2 MG/ML VIAL SLOW IVP PRN (20:02)
[2020-02-05] MEDS: Lorazepam 2 MG/ML VIAL SLOW IVP PRN ×3 (02:59→14:53)
[2020-02-05] MEDS: Morphine 2 MG/ML VIAL SLOW IVP PRN ×4 (02:59→23:47)
[2020-02-06] MEDS: Morphine 2 MG/ML VIAL SLOW IVP PRN ×3 (07:49→19:13)
[2020-02-06] MEDS: Lorazepam 2 MG/ML VIAL SLOW IVP PRN ×2 (07:49→17:36)
[2020-02-06] MEDS: diphenhydrAMINE 50 MG/ML VIAL IVP PRN ×2 (08:48→14:34)
[2020-02-06] MEDS: Scopolamine 1.5 mg/72 hour Patch TOP SCH (15:58)
[2020-02-07] MEDS: diphenhydrAMINE 50 MG/ML VIAL IVP PRN (03:31)
[2020-02-07 08:10] VITALS: BP 139/80; TEMP 99.1
--- NOTE | 2020-02-12 10:15 | DIS ---
DATE OF ADMISSION: 02/03/2020 DATE OF DISCHARGE: 02/07/2020 This is a 54-year-old gentleman with a history of diabetes mellitus, who was admitted for respiratory failure. The patient was intubated and then extubated on hospice. The patient started breathing on his own. The patient was able to verbalize. He was treated for sepsis, pneumonia. Home medications were reviewed. DISPOSITION: Home with hospice. DIET: The patient will eat a regular diet. All the above findings were discussed with the family. All questions were answered. Job ID: [id number]
== END 2020-02-07 14:40 | disposition hospice, home (50) | DRG 951 ==
LOC: CCU 14:59 → ONC 18:21
PROVIDERS: ADMIT Internal Medicine Nephrology; ATTEND Internal Medicine Nephrology
DX: Z51.5 Encounter for palliative care (principal); A41.9 Sepsis, unspecified organism; R65.21 Severe sepsis with septic shock; J96.01 Acute respiratory failure with hypoxia; J18.9 Pneumonia, unspecified organism; E44.0 Moderate protein-calorie malnutrition; Z68.1 Body mass index [BMI] 19.9 or less, adult; Z66 Do not resuscitate; Z20.828 Contact with and (suspected) exposure to other viral communicable diseases
CPT/HCPCS: J1200; J1642; J2060; J2270; J2405